=== PATIENT | male | born 1960 | race Caucasian/White ===

== ENCOUNTER 2025-07-20 16:04 | Inpatient (IN) ==
--- NOTE | 2025-07-20 16:28 | Emergency Department Note ---
Impression & Plan Liver masses, Ascites of liver, Electrolyte abnormality, Acute kidney injury, Lactic acidosis ED Provider Note NAME: JAIDA WILSON AGE: 64 SEX: M : 1960 ARRIVES VIA: Walk-In INFORMANT: Patient ED PROVIDER(S): Mike Harvey DO CHIEF COMPLAINT: Weakness and lightheadedness HPI: Patient is a 64-year-old male with a past medical history of COPD who presents to the ER for weakness which has been going on for the past month. He notes this has been gradually getting worse. Feels very weak and rundown. He sleeps for 3 hours and then is awake. He was referred in by his PCP as there were concerns for elevated liver functions anemia jaundice. He notes that over a month ago he had some dark stools but that has abated. Denies any chest pain or shortness of breath with exertion. No belly pain. No other exacerbating or remitting factors. No history of cancer. ADDITIONAL HISTORY OBTAINED: Per HPI Chronic Medical/Social Conditions Affecting Care: Per HPI PAST MEDICAL HISTORY:See Below PAST SURGICAL HISTORY:See Below FAMILY HISTORY:See Below SOCIAL HISTORY:See Below HOME MEDICATIONS:See Below ALLERGIES:See Below VITALS:See Below PHYSICAL EXAMINATION: GENERAL: Sitting up in bed, alert, chronically ill-appearing, cachectic, disheveled EYE EXAM: normal conjunctiva. PERRL and EOM's grossly intact. OROPHARYNX: no exudate, no erythema, lips, buccal mucosa, and tongue normal and mucous membranes are moist NECK: supple, no nuchal rigidity, no adenopathy, non-tender LUNGS: Clear to auscultation. Normal chest wall mechanics HEART: no murmurs, S1 normal and S2 normal ABDOMEN: abdomen soft, non-tender, normo-active bowel sounds, no masses, no rebound or guarding. BACK: Back is symmetrical on inspection and there is no deformity, no midline tenderness, no CVA tenderness. SKIN: no rashes and no bruising UPPER EXTREMITIES: upper extremities are grossly normal. LOWER EXTREMITIES: No pitting edema. NEURO EXAM: Normal sensorium, cranial nerves II-XII grossly intact, normal speech, no gross weakness of arms, no gross weakness of legs. MEDICAL DECISION MAKING: Patient is a 64-year-old male who presents to the ER for the above-stated complaint. IV was established blood work is obtained. Labs show no significant leukocytosis. Mild anemia at 9.1. Platelets are slightly low at 118. INR at 1.5. BMP with hyponatremia at 129. Potassium low at 3.2. Creatinine was elevated at 1.9. External records were reviewed from [facility] which shows creatinine of 0.9. He does clearly have some RHONDA. Blood pressures were in the 80s upon arrival. He was given IV fluids. Bilirubin was elevated. Mag slightly low. Transaminitis. Pro-Xiang at 1.1. CT abdomen pelvis showed liver masses and they favored cancer versus abscesses. Patient was covered with IV antibiotics including Flagyl and Rocephin initially. Chest x-ray was unremarkable. Case discussed with hospitalist for further evaluation management treatment. Consults/Care Managements Discussions: Per MDM Triage Nursing notes reviewed. Limited review of prior medical records performed Vital Signs: reviewed and remarkable for hypotensive and tachycardic Differential diagnosis: Sepsis, UTI, pneumonia, metabolic, electrolyte abnormalities, cardiac sources, intracerebral event, toxicologic, neurologic, as well as other pathologies. ER treatment provided: See below Diagnostics interpreted by me include EKG and cardiac monitoring as listed below: -Cardiac Monitoring: An order was placed for continuous cardiac monitoring. The monitor shows a rate of 110 with sinus rhythm. -ECG: [none] -Laboratory studies:Interpreted by me as stated above in MDM and shown below. Imaging studies: Xrays: As interpreted by me: portable AP upright 1 view the chest shows no focal infiltrate CTs show: CT abdomen pelvis as described above Procedures: none Critical Care: none Past Med/Surg History Problem List (Updated 07/20/25 @ 21:55 by Mike Harvey DO) Pruritus due to systemic disorder Lactic acidosis (Acute) Severe protein-calorie malnutrition Acute kidney injury (Acute) Electrolyte abnormality (Acute) Ascites of liver (Acute) Liver masses (Acute) Social History Smoking Status: Unknown if ever smoked Preferred Language: Uzbek Feels Safe at Home: Yes Allergies Allergies Allergy/AdvReac Type Severity Reaction Status Date / Time No Known Allergies Allergy Verified 07/20/25 19:37 Home Meds Home Medications Medication Instructions Recorded Confirmed No Known Home Medications 07/20/25 07/20/25 Results & Data (ED) Vital Signs Vital Signs - 24 hr 07/20/25 16:09 07/20/25 17:00 07/20/25 17:09 Temperature 36.9 C Temperature Source Temporal Artery Scan Pulse Rate 110 H 102 H Pulse Rate [Finger] 98 H Respiratory Rate 19 18 Blood Pressure 86/56 L Blood Pressure [Right Arm] 114/66 Blood Pressure Mean 66 Blood Pressure Mean [Right Arm] 82 Pulse Oximetry 99 99 Oxygen Delivery Method Room Air Room Air Sepsis Recent Fever Within 48 Hours No Sepsis New/Unexplained Change in Mental Status N/A Sepsis Action Taken by Nursing No Action Required 07/20/25 18:30 Temperature Temperature Source Pulse Rate Pulse Rate [Finger] 97 H Respiratory Rate 18 Blood Pressure Blood Pressure [Right Arm] 109/72 Blood Pressure Mean Blood Pressure Mean [Right Arm] 84 Pulse Oximetry 98 Oxygen Delivery Method Room Air Sepsis Recent Fever Within 48 Hours Sepsis New/Unexplained Change in Mental Status Sepsis Action Taken by Nursing Laboratory Data 07/20/25 16:25 07/20/25 16:25 Lab Results 07/20/25 07/20/25 Range/Units 16:25 16:32 WBC 9.23 (4.8-10.8) K/ul RBC 2.65 L (4.70-6.10) M/uL Hgb 9.1 L (14.0-18.0) g/dl POC Hgb 10.2 L (14.0-18.0) g/dl Hct 27.7 L (42.0-52.0) % POC Hct 30 L (42-52) % MCV 104.5 H (80.0-100.0) fL MCH 34.3 H (25.0-34.0) pg MCHC 32.9 (32.0-36.0) g/dL RDW Std Deviation 55.9 H (36.4-46.3) fL RDW Coeff of Colin 14.6 H (11.5-14.5) % Plt Count 118 L (130-400) K/uL MPV 11.4 (9.4-12.4) fL Immature Gran % (Auto) 0.7 % Neut % (Auto) 59.2 % Lymph % (Auto) 29.4 % [place] % (Auto) 10.3 % Eos % (Auto) 0.2 % Baso % (Auto) 0.2 % Neut # (Auto) 5.47 (1.40-6.50) K/uL Lymph # (Auto) 2.71 (1.20-3.40) K/uL [place] # (Auto) 0.95 H (0.11-0.59) K/uL Eos # (Auto) 0.02 (0.00-0.50) K/uL Baso # (Auto) 0.02 (0.00-0.20) K/uL Immature Gran # (Auto) 0.06 (0.01-0.20) K/uL Polychromasia 1+ PT 15.4 H (9.0-12.0) Seconds INR 1.5 H (0.9-1.1) POC Sodium 130 L (135-144) mmol/L Sodium 129 L (136-145) mmol/L POC Potassium 3.2 L (3.3-5.0) mmol/L Potassium 3.2 L (3.5-5.1) mmol/L POC Chloride 87 L (101-112) mmol/L Chloride 89 L (98-107) mmol/L Carbon Dioxide 33 H (21-32) mmol/L POC Total CO2 31 (24-31) mmol/L Anion Gap 7 (3-11) POC Anion Gap 16.0 (16-25) mmol/L POC BUN 37 H (7-18) mg/dl BUN 40 H (6-23) mg/dl Creatinine 1.97 H (0.6-1.4) mg/dl POC Creatinine 2.3 H (0.6-1.3) mg/dl Est Cr Clr Drug Dosing Not Reportable eGFR 37.25 BUN/Creatinine Ratio 20.3 H (10-20) Glucose 152 H (70-99(Fasting)) mg/dl POC Glucose (other) 148 H (70-99) mg/dl Lactate 3.8 H* (0.4-2.0) mmol/L Calcium 8.5 L (8.6-10.3) mg/dl POC Ioniz Calcium Dk 1.02 L (1.12-1.32) mmol/l Magnesium 1.3 L (1.7-2.4) mg/dl Total Bilirubin 2.2 H (0.2-1.0) mg/dl Direct Bilirubin 1.1 H (0-0.2) mg/dl AST 86 H (13-39) U/L ALT 63 H (7-52) U/L Alkaline Phosphatase 233 H (34-104) U/L Troponin I High Sens 16.7 (0-20) pg/ml Total Protein 6.4 (6.0-8.3) gm/dl Albumin 2.3 L (3.4-5.0) gm/dl Procalcitonin 1.18 H (0-0.5) ng/ml Administered Medications Discontinued Medications Diphenhydramine HCl (Diphenhydramine 50 Mg/Ml Vial) 25 mg IV NOW STA Stop: 07/20/25 18:53 Last Admin: 07/20/25 19:17 Dose: 25 mg Documented By: PROMISE Sodium Chloride (Nss) 1,000 mls @ 999 mls/hr IV .Q1H1M ONE Stop: 07/20/25 17:28 Last Infusion: 07/20/25 17:46 Dose: Infused Documented By: Admin: 07/20/25 16:39 Dose: 999 mls/hr Documented By: JAYSON Ceftriaxone Sodium (Rocephin) 2,000 mg in 50 mls @ 100 mls/hr IV NOW STA Stop: 07/20/25 16:57 Last Infusion: 07/20/25 17:46 Dose: Infused Documented By: Admin: 07/20/25 16:39 Dose: 100 mls/hr Documented By: JAYSON Metronidazole (Flagyl) 500 mg in 100 mls @ 100 mls/hr IV NOW STA; Protocol Stop: 07/20/25 19:27 Last Infusion: 07/20/25 20:21 Dose: Infused Documented By: Admin: 07/20/25 19:17 Dose: 100 mls/hr Documented By: HARISH Imaging Data Radiologist's Impression: Chest X-Ray 07/20/25 16:15 Clinical History: Sepsis Technique: A frontal view of the chest was obtained Findings: There are no confluent pulmonary infiltrates. The heart size is within normal limits. No pleural effusion or pneumothorax is seen. There is no definite pulmonary nodule. No fracture is noted. No foreign body is seen Impression: No active disease Electronically signed by Gabriel Vera 07-20-2025 5:00 PM Abdomen/Pelvis CT 07/20/25 17:08 EXAMINATION: CT of the abdomen and pelvis performed without contrast TECHNIQUE: Helical CT images from the lung bases through the symphysis pubis were obtained without contrast. Coronal and sagittal reformatted images were generated at a workstation for further assessment. Dose reduction techniques were achieved by using automatic exposure control and/or adjustment of mA and/or kV according to patient size and/or use of iterative reconstruction technique. COMPARISON: None HISTORY: Elevated LFTs FINDINGS: Lower chest: No consolidation. No pleural effusion or pneumothorax. Liver: Posterior right hepatic lobe lesion measuring 6.7 x 5.4 cm, is internally heterogeneous with scattered low-density areas. Anterior left hepatic lobe lesion measuring 3.3 x 1.8 cm is hyperattenuating. Gallbladder: No gallstones. No evidence of acute cholecystitis. Spleen: Normal size. Pancreas: No suspicious pancreatic lesions. The pancreatic duct is not dilated. Adrenal glands: No adrenal nodules. Kidneys: No hydronephrosis or obstructing renal stones. Bladder / Pelvic organs: Unremarkable. Bowel: No bowel obstruction. No abnormal bowel wall thickening. The appendix is unremarkable. There is a moderate esophageal hiatal hernia. Sigmoid diverticulosis without diverticulitis. Lymph nodes: No retroperitoneal, mesenteric, or pelvic lymphadenopathy. Peritoneum / Retroperitoneum: There is a large volume of ascites. Vessels: No infrarenal aortic aneurysm. Heavy aortoiliac calcification. Bones and soft tissues: No suspicious lesion in the bones. IMPRESSION: There is a large heterogeneous mass in the posterior right lobe of the liver, which is nonspecific, for benign and malignant etiologies, however the findings are concerning for neoplasm. An abscess is in the differential, however seems less likely. A higher attenuating nodular area in the anterior left lobe, may also represent a mass. Large volume ascites. Electronically signed by Ashwin Vivar 07-20-2025 6:05 PM Discharge Plan Visit Data Chief Complaint: Referred by Doctor Stated Complaint: EVAL FROM [facility] REFERRAL ED Provider: Mike Harvey Discharge Problem: Liver masses, Ascites of liver, Electrolyte abnormality, Acute kidney injury, Lactic acidosis Condition: Serious Discharge Instructions Interventions: ED Discharge Assessment Last Done: 07/20/25 20:37
[2025-07-20] MEDS: cefTRIAXone SODIUM 2,000 MG/50 ML BAG IV STA (16:39)
[2025-07-20] MEDS: SODIUM CHLORIDE 0.9% 1,000 ML IV ONE (16:39)
--- NOTE | 2025-07-20 17:00 | XRay Report ---
Clinical History: Sepsis Technique: A frontal view of the chest was obtained Findings: There are no confluent pulmonary infiltrates. The heart size is within normal limits. No pleural effusion or pneumothorax is seen. There is no definite pulmonary nodule. No fracture is noted. No foreign body is seen Impression: No active disease Electronically signed by Gabriel Vera 07-20-2025 5:00 PM
[2025-07-20 17:12] LABS: Alanine Aminotransferase 63 U/L (7-52); Albumin Level 2.3 gm/dl (3.4-5.0); Alkaline Phosphatase 233 U/L (34-104); Anion Gap 7 (3-11); Bilirubin,Total 2.2 mg/dl (0.2-1.0); Blood Urea Nitrogen 40 mg/dl (6-23); Calcium 8.5 mg/dl (8.6-10.3); Carbon Dioxide 33 mmol/L (21-32); Chloride 89 mmol/L (98-107); Glucose 152 mg/dl (70-99(Fasting)); Magnesium 1.3 mg/dl (1.7-2.4); Potassium 3.2 mmol/L (3.5-5.1); Sodium 129 mmol/L (136-145); Total Protein 6.4 gm/dl (6.0-8.3)
[2025-07-20 17:21] LABS: INR 1.5 (0.9-1.1); Prothrombin Time 15.4 Seconds (9.0-12.0)
[2025-07-20 17:37] LABS: Hematocrit (blood only) 27.7 % (42.0-52.0); Hemoglobin 9.1 g/dl (14.0-18.0); Mean Corpuscular Hemoglobin 34.3 pg (25.0-34.0); Mean Corpuscular Volume 104.5 fL (80.0-100.0); Platelet Count 118 K/uL (130-400); RDW Standard Deviation 55.9 fL (36.4-46.3); Red Blood Count 2.65 M/uL (4.70-6.10); White Blood Count 9.23 K/ul (4.8-10.8)
[2025-07-20 18:01] LABS: Immature Granulocytes # (auto) 0.06 K/uL (0.01-0.20); Immature Granulocytes % (auto) 0.7 %; Polychromasia 1+
--- NOTE | 2025-07-20 18:05 | CT Scan Report ---
EXAMINATION: CT of the abdomen and pelvis performed without contrast TECHNIQUE: Helical CT images from the lung bases through the symphysis pubis were obtained without contrast. Coronal and sagittal reformatted images were generated at a workstation for further assessment. Dose reduction techniques were achieved by using automatic exposure control and/or adjustment of mA and/or kV according to patient size and/or use of iterative reconstruction technique. COMPARISON: None HISTORY: Elevated LFTs FINDINGS: Lower chest: No consolidation. No pleural effusion or pneumothorax. Liver: Posterior right hepatic lobe lesion measuring 6.7 x 5.4 cm, is internally heterogeneous with scattered low-density areas. Anterior left hepatic lobe lesion measuring 3.3 x 1.8 cm is hyperattenuating. Gallbladder: No gallstones. No evidence of acute cholecystitis. Spleen: Normal size. Pancreas: No suspicious pancreatic lesions. The pancreatic duct is not dilated. Adrenal glands: No adrenal nodules. Kidneys: No hydronephrosis or obstructing renal stones. Bladder / Pelvic organs: Unremarkable. Bowel: No bowel obstruction. No abnormal bowel wall thickening. The appendix is unremarkable. There is a moderate esophageal hiatal hernia. Sigmoid diverticulosis without diverticulitis. Lymph nodes: No retroperitoneal, mesenteric, or pelvic lymphadenopathy. Peritoneum / Retroperitoneum: There is a large volume of ascites. Vessels: No infrarenal aortic aneurysm. Heavy aortoiliac calcification. Bones and soft tissues: No suspicious lesion in the bones. IMPRESSION: There is a large heterogeneous mass in the posterior right lobe of the liver, which is nonspecific, for benign and malignant etiologies, however the findings are concerning for neoplasm. An abscess is in the differential, however seems less likely. A higher attenuating nodular area in the anterior left lobe, may also represent a mass. Large volume ascites. Electronically signed by Ashwin Vivar 07-20-2025 6:05 PM
[2025-07-20] MEDS: diphenhydrAMINE 50 MG/ML VIAL IV STA (19:17)
[2025-07-20] MEDS: metroNIDAZOLE 500 MG/100 ML BAG IV STA (19:17)
--- NOTE | 2025-07-20 19:27 | History & Physical Report ---
Date of Service July 20, 2025 Assessment & Plan (1) Liver masses: (2) Ascites of liver: (3) Electrolyte abnormality: (4) Acute kidney injury: (5) Severe protein-calorie malnutrition: (6) Lactic acidosis: (7) Pruritus due to systemic disorder: Plan Patient 64-year-old gentleman presents with pruritus, weight loss and weakness. Evaluation shows liver masses and ascites highly concerning for liver cancer. Admit to [facility] Interventional radiology for liver biopsy and paracentesis Patient did have recent dental surgery, tooth extraction, patient's procalcitonin is elevated. Lower suspicion for infectious process but will cover with antibiotics, Zosyn, until blood cultures are resulted. Many cancers also cause an increased procalcitonin. Echocardiogram for cardiac murmur evaluation Replace electrolytes Hyponatremia most likely due to poor oral intake and volume depletion Suspect renal dysfunction due to poor oral intake, volume depletion, overall debilitated state. Continue to monitor electrolytes and kidney function Check alpha-fetoprotein level CT of the chest for further evaluation of any type of metastatic disease or primary Patient declined nicotine replacement Patient reports that his last alcoholic beverage was greater than 1 month ago, will low suspicion for any alcohol withdrawal symptoms Discussed advanced directives with patient request DNR/DNI History of Present Illness Chief Complaint: Abnormal labs and severe itching and weight loss Primary Care Provider: NO PCP Patient is a 64-year-old gentleman presents to the emergency room with above complaints. He was sent in by primary care provider due to abnormal labs. The patient has not seen a physician for at least 10 years. Went to see primary care provider a few days ago with complaints of weight loss and pruritus. Outpatient laboratory studies showed significant laboratory abnormalities including abnormal LFTs and anemia. Sent to the emergency room for further evaluation. In the emergency room laboratory studies confirm some anemia. Multiple electrolyte abnormalities, kidney dysfunction and abnormal LFTs. Imaging in the ED also was significant for a fairly large liver mass. Patient was referred to our service for further evaluation. Time my evaluation patient states he is comfortable but has this incessant pruritus. Pruritus has been ongoing for months. The patient did have teeth extraction a few weeks ago. He was on antibiotics for that. He did have some bleeding gums associated with the teeth extraction and may explain some of his anemia. He states that his gums are healed up no no significant pain at this time. He admits to some shortness of breath with exertion but no chest pain. His appetite has been poor for quite some time and now with his teeth extracted his oral intake has been significantly reduced. He does admit noticing weight loss even before he had his teeth extracted but since the teeth extraction has lost weight even more rapidly. He did mid to a history of heavy alcohol use in the past. Over the past year has cut that back significantly and has not had an alcoholic beverage drink for at least 1 month. He also smoked heavily in the past greater than a pack a day and recently over the past month has been only smoking a few cigarettes per day. He has noticed some constipation with his decreased appetite. He states he did have some black stools shortly after his tooth extraction. This would makes perfect sense since he was having significant bl eeding gums and was swallowing blood from the bleeding gums. He had denies any problems passing his urine. No swollen or tender joints. No swelling in his hands legs arms or feet. Patient denies any known medical problems, takes no prescription medications Family history significant for father with coronary disease, mother of old age. There is no cancer that he is aware of in the family. Allergies Allergy/AdvReac Type Severity Reaction Status Date / Time No Known Allergies Allergy Unverified 07/20/25 19:20 Home Medications Medication Instructions Recorded Confirmed Type No Known Home Medications 07/20/25 07/20/25 History Past Med/Surg History Problem List (Updated 07/20/25 @ 19:24 by Efra Clay DO) Pruritus due to systemic disorder Lactic acidosis Severe protein-calorie malnutrition Acute kidney injury Electrolyte abnormality Ascites of liver Liver masses Social History Smoking Status: Unknown if ever smoked Preferred Language: Irish Feels Safe at Home: Yes Review of Systems Review of Systems: Pertinent positive and negative review of systems as mentioned in the HPI Physical Exam Physical Exam: Constitutional: Alert, nontoxic, frail, cachectic HEENT: Mucous membranes moist. Adentulous Neck: Soft, no adenopathy Lungs: Decreased breath sounds, prolonged expiratory phase no wheezes CV: S1-S2, regular, systolic murmur Abdomen: Soft, nontender, nondistended, no no guarding, no rigidity, lobular liver Extremities: No significant edema Musculoskeletal: No significant joint tenderness Neuro: No focal deficits, generally weak Psych: Cooperative, normal mood Results & Data Results & Data Vital Signs (Past 12 Hours) Vital Signs Temp Pulse Pulse Resp BP BP Pulse Ox 07/20/25 18:30 97 H 18 109/72 98 07/20/25 17:09 102 H 07/20/25 17:00 98 H 18 114/66 99 07/20/25 16:09 36.9 C 110 H 19 86/56 L 99 O2 Del Method 07/20/25 18:30 Room Air 07/20/25 17:09 07/20/25 17:00 Room Air 07/20/25 16:09 Room Air Diagnostic Findings Reviewed imaging, laboratory and diagnostic studies. Pertinent findings as below. WBCs 9.2 Hemoglobin 9.1 Platelets of 118 INR 1.5 Sodium 129 Potassium 3.2 Chloride of 89 Carbon dioxide 33 BUN 40 Creatinine 1.97 Glucose 152 Lactate 3.8 Calcium 8.5 Magnesium 1.3 LFTs reviewed and all significantly elevated Procalcitonin 1.18 CT of the abdomen report reviewed, significant for6.7 x 5.4 cm right hepatic lobe mass is also a lesion in left hepatic lobe measuring 3.3 x 1.8 cm, no bowel obstruction or thickening, no significant lymphadenopathy, there is also a fair amount of ascites Chest x-ray no active disease Code Status & VTE Plan VTE Prophylaxis Plan VTE Prophylaxis will be ordered: Yes
--- NOTE | 2025-07-20 20:46 | CT Scan Report ---
Exam(s): CT CHEST Without Contrast EXAM: CT Chest Without Intravenous Contrast CLINICAL HISTORY: Reason for exam: copd, liver mass, met dis. TECHNIQUE: Axial computed tomography images of the chest without intravenous contrast. CTDI is 6 mGy and DLP is 221.88 mGy-cm. Automated exposure control was utilized for the study. A dose lowering technique was utilized adhering to the principles of ALARA. COMPARISON: Chest x-ray 07/20/2025 FINDINGS: Lungs: Scarring in the right upper lobe. Subsegmental atelectasis in the left lower lobe. No consolidation. No suspicious nodule. Calcified granuloma at the left apex measuring 3 mm. Pleural space: No pleural effusion or pneumothorax. Heart: Severe coronary artery calcifications. Heart size is normal. Mediastinum: Moderate hiatal hernia. Ascites within the hernia sac and upper abdomen. Bones/joints: Superior endplate compression fracture at T10 which is age indeterminate. Potentially acute. No posterior cortical retropulsion. Subacute to chronic appearing left anterior second rib fracture. No acute appearing fracture. Soft tissues: Unremarkable. Vasculature: Advanced aortic valvular calcifications. Lymph nodes: Unremarkable. Liver: Multiple lesions in the liver largest in the right hepatic lobe measuring 4.9 x 3.6 cm. IMPRESSION: 1. No evidence of metastatic disease in the chest. 2. Superior endplate compression fracture at T10 which is age indeterminate. Potentially acute. No posterior cortical retropulsion. 3. Multiple lesions in the liver largest in the right hepatic lobe measuring 4.9 x 3.6 cm. 4. Moderate hiatal hernia. Ascites within the hernia sac and upper abdomen. 5. Severe coronary artery and aortic valvular calcifications. Electronically signed by: Alec Nina MD 07/20/25 20:46 PM
[2025-07-20] MEDS ORDERED: ACETAMINOPHEN 325 MG TAB PO PRN (21:25)
[2025-07-20] MEDS ORDERED: ALUMINUM/MAGNESIUM SUSP 30 ML UDC PO PRN (21:25)
[2025-07-20] MEDS: NSS + 20MEQ KCL 20 MEQ/1,000 ML BAG IV SCH (22:09)
[2025-07-20] MEDS: PIPERACILLIN/TAZOBACTAM 4.5 GM/100 ML BAG IV STA (22:09)
[2025-07-20] MEDS: MAGNESIUM SULFATE / D5W 1 GM/100 ML BAG IV SCH (22:09)
[2025-07-20] MEDS: POTASSIUM CHLORIDE CRTAB 20 MEQ TABCR PO STA (22:10)
[2025-07-20] MEDS: Patient's HEIGHT &/or WEIGHT Needed STA ×2 (23:08)
[2025-07-21] MEDS: LORATADINE 10 MG TAB PO ONE (00:30)
[2025-07-21] MEDS: MELATONIN 3 MG TAB PO PRN (00:30)
[2025-07-21 00:57] LABS: Appearance Urine Clear (Clear); Bacteria Urine Automated None Seen (None Seen); Epithelial Cell Urine Auto 0-2 /hpf (0-2); Glucose Urine UA Negative (Negative); RBC Urine Automated 0-2 /hpf (0-2); WBC Urine Automated 0-5 /hpf (0-5)
[2025-07-21] MEDS: PIPERACILLIN/TAZOBACTAM 4.5 GM/100 ML BAG IV SCH (01:59)
--- NOTE | 2025-07-21 05:41 | Communication Note ---
Date of Service: July 21, 2025 RN inquiring about diet for possible liver biopsy procedure today. N.p.o. for now
[2025-07-21] MEDS: POLYETHYLENE (MIRALAX) 17 GM PACK PO SCH (08:05)
[2025-07-21 08:31] LABS: Alanine Aminotransferase 45.0 U/L (7-52); Albumin Level 1.8 gm/dl (3.4-5.0); Alkaline Phosphatase 177.0 U/L (34-104); Anion Gap 5.0 (3-11); Bilirubin,Total 1.8 mg/dl (0.2-1.0); Blood Urea Nitrogen 33.0 mg/dl (6-23); Calcium 7.8 mg/dl (8.6-10.3); Carbon Dioxide 31.0 mmol/L (21-32); Chloride 96.0 mmol/L (98-107); Creatinine Clr Calc Pharmacy 26.6 ml/min; Glucose 89.0 mg/dl (70-99(Fasting)); Magnesium 2.7 mg/dl (1.7-2.4); Potassium 3.8 mmol/L (3.5-5.1); Sodium 132.0 mmol/L (136-145); Total Protein 5.2 gm/dl (6.0-8.3)
[2025-07-21 08:44] LABS: Hematocrit (blood only) 24.3 % (42.0-52.0); Hemoglobin 7.9 g/dl (14.0-18.0); Mean Corpuscular Hemoglobin 33.9 pg (25.0-34.0); Mean Corpuscular Volume 104.3 fL (80.0-100.0); Platelet Count 72 K/uL (130-400); RDW Standard Deviation 54.9 fL (36.4-46.3); Red Blood Count 2.33 M/uL (4.70-6.10); White Blood Count 4.87 K/ul (4.8-10.8)
--- NOTE | 2025-07-21 14:28 | Ultrasound Report ---
ULTRASOUND-GUIDED PARACENTESIS CLINICAL HISTORY: Ascites PROCEDURE: Procedure and risks were explained. Informed consent was obtained. A final timeout was com pleted. A pocket of ascites was identified in the left lower quadrant. The left lower quadrant was pr epped and draped in sterile fashion. 1% lidocaine was utilized for skin anesthesia. Utilizing ultrasound guidance, a 5 [place] safety centesis catheter was advanced into the pocket of as cites. Ultrasound image was obtained. A total of 3.1 L of yellow ascites fluid was removed, with 1 L sent to lab for analysis. The catheter was removed and Band-Aid applied. The patient tolerated the pr ocedure well. Vital signs will be monitored postprocedure. IMPRESSION: Ultrasound-guided paracentesis as above. Performed, dictated, and signed by Rizwan Arreguin PA-C; to be co-signed by Dr. Fitz Menjivar. Electronically signed by: Fitz Menjivar M.D. 07/21/2025 3:40 PM
[2025-07-21 15:48] LABS: Albumin Peritoneal Fluid < 1.5 gm/dl; Lipase Peritoneal Fluid 36 U/L
[2025-07-21 16:03] LABS: Appearance Peritoneal Fluid Clear; Color Peritoneal Fluid Pale Yellow; RBC Peritoneal Fluid Auto < 2000 /uL; WBC Peritoneal Fluid Auto 72 /ul (0-300)
--- NOTE | 2025-07-21 16:08 | Hospitalist Progress Note ---
Date of Service July 21, 2025 Assessment & Plan (1) Liver masses: (2) Ascites of liver: (3) Electrolyte abnormality: (4) Acute kidney injury: (5) Severe protein-calorie malnutrition: (6) Lactic acidosis: (7) Pruritus due to systemic disorder: Plan Patient 64-year-old gentleman presents with pruritus, weight loss and weakness. Evaluation shows liver masses and ascites highly concerning for liver cancer. Admit to [facility] Interventional radiology for liver biopsy and paracentesis Patient did have recent dental surgery, tooth extraction, patient's procalcitonin is elevated. Lower suspicion for infectious process but will cover with antibiotics, Zosyn, until blood cultures are resulted. Many cancers also cause an increased procalcitonin. Echocardiogram for cardiac murmur evaluation Replace electrolytes Hyponatremia most likely due to poor oral intake and volume depletion Suspect renal dysfunction due to poor oral intake, volume depletion, overall debilitated state. Continue to monitor electrolytes and kidney function Check alpha-fetoprotein level CT of the chest for further evaluation of any type of metastatic disease or primary Patient declined nicotine replacement Patient reports that his last alcoholic beverage was greater than 1 month ago, will low suspicion for any alcohol withdrawal symptoms Discussed advanced directives with patient request DNR/DNI 07/21 discussed with IR Deepak Arreguin will start with IR paracentesis with cytology studies hold off on Liver Biopsy for now Hyponatremia improving Crea improved from 1.8 to 1.9 continue IV fluids ff up cultures on empiric Zosyn echo: mild to moderate mitral regurgitation K and Mg improving Acute 10 Fracture: no back pain Ashish Soto MD Admission and Anticipated Discharge Date Admission Date: July 20, 2025 Subjective seen resting in bed, comfortable states he is very tired otherwise feels ok denies abdominal pain, nausea no chest pain, dyspnea, palpitations, dizziness no fever/chills no other symptoms Review of Systems Review of Systems: all noted and negative except for above Physical Exam Physical Exam: General- oriented x 3, not in distress, speaks in sentences with no effort or accessory muscle use Eyes- anicteric Neck- no JVD Lungs- clear breath sounds bilaterally, no rales/wheezes Heart- normal rate, regular rhythm; no murmurs Abdomen- normal bowel sounds, nondistended, soft, nontender Extremities- no pretibial edema, no calf tenderness Neuro- alert, oriented x 3; no gross focal neurologic deficits Skin- warm & dry Results & Data Results & Data Vital Signs (Past 12 Hours) Vital Signs Temp Pulse Resp BP Pulse Ox O2 Del Method 07/21/25 14:50 36.3 C L 83 18 95/62 L 96 Room Air 07/21/25 14:27 79 85/55 L 07/21/25 14:03 78 16 93/60 L 93 Room Air 07/21/25 13:32 36.4 C L 86 18 98/61 L 95 Room Air 07/21/25 11:28 Room Air 07/21/25 07:24 36.4 C L 82 18 94/58 L 94 Room Air all noted and reviewed including below
[2025-07-22 08:15] LABS: Alanine Aminotransferase 44.0 U/L (7-52); Albumin Level 1.7 gm/dl (3.4-5.0); Alkaline Phosphatase 184.0 U/L (34-104); Anion Gap 7.0 (3-11); Bilirubin,Total 1.9 mg/dl (0.2-1.0); Blood Urea Nitrogen 29.0 mg/dl (6-23); Calcium 7.9 mg/dl (8.6-10.3); Carbon Dioxide 27.0 mmol/L (21-32); Chloride 99.0 mmol/L (98-107); Creatinine Clr Calc Pharmacy 24.8 ml/min; Glucose 95.0 mg/dl (70-99(Fasting)); Potassium 4.3 mmol/L (3.5-5.1); Sodium 133.0 mmol/L (136-145); Total Protein 5.3 gm/dl (6.0-8.3)
[2025-07-22 08:37] LABS: Hematocrit (blood only) 26.2 % (42.0-52.0); Hemoglobin 8.6 g/dl (14.0-18.0); Immature Granulocytes # (auto) 0.03 K/uL (0.01-0.20); Immature Granulocytes % (auto) 0.5 %; Mean Corpuscular Hemoglobin 33.9 pg (25.0-34.0); Mean Corpuscular Volume 103.1 fL (80.0-100.0); Platelet Count 69 K/uL (130-400); RDW Standard Deviation 54.4 fL (36.4-46.3); Red Blood Count 2.54 M/uL (4.70-6.10); White Blood Count 5.93 K/ul (4.8-10.8)
[2025-07-22] MEDS ORDERED: ENOXAPARIN INJ 30 MG/0.3 ML SYR SQ SCH (09:00)
[2025-07-22 10:58] LABS: Iron 108.0 mcg/dl (35-175)
[2025-07-22 11:46] LABS: Vitamin B12 821.0 pg/ml (180-914)
[2025-07-22 11:47] LABS: Folate (Folic Acid),Ser orPlas 20.58 ng/ml (>5.38)
[2025-07-22 11:47] LABS: Lymphocytes, Fluid 65 %; Mono,Macrophage,Mesothelial 33 %; Neutrophils, Fluid 2 %
--- NOTE | 2025-07-22 14:36 | Hospitalist Progress Note ---
Date of Service July 22, 2025 Assessment & Plan (1) Liver masses: (2) Ascites of liver: (3) Electrolyte abnormality: (4) Acute kidney injury: (5) Severe protein-calorie malnutrition: (6) Lactic acidosis: (7) Pruritus due to systemic disorder: Plan Patient 64-year-old gentleman presents with pruritus, weight loss and weakness. Evaluation shows liver masses and ascites highly concerning for liver cancer. Admit to [facility] Interventional radiology for liver biopsy and paracentesis Patient did have recent dental surgery, tooth extraction, patient's procalcitonin is elevated. Lower suspicion for infectious process but will cover with antibiotics, Zosyn, until blood cultures are resulted. Many cancers also cause an increased procalcitonin. Echocardiogram for cardiac murmur evaluation Replace electrolytes Hyponatremia most likely due to poor oral intake and volume depletion Suspect renal dysfunction due to poor oral intake, volume depletion, overall debilitated state. Continue to monitor electrolytes and kidney function Check alpha-fetoprotein level CT of the chest for further evaluation of any type of metastatic disease or primary Patient declined nicotine replacement Patient reports that his last alcoholic beverage was greater than 1 month ago, will low suspicion for any alcohol withdrawal symptoms Discussed advanced directives with patient request DNR/DNI 07/21 discussed with IR Deepak Arreguin will start with IR paracentesis with cytology studies hold off on Liver Biopsy for now Hyponatremia improving Crea improved from 1.8 to 1.9 continue IV fluids ff up cultures on empiric Zosyn echo: mild to moderate mitral regurgitation K and Mg improving Acute 10 Fracture: no back pain 07/22 stable overall ascites fluid: no WBC ascites fluid pathology: pending Na 133 Crea stable at 1.9 d/c IV lfuids cultures negative so far de escalate to augmentin pt/ot ordered anticipate d/c tomorrow Ashish Soto MD Admission and Anticipated Discharge Date Admission Date: July 20, 2025 Subjective seen resting in bed ,comfortable states he feels ok overall weakness improving appetite is fair no abdominal pain no nausea/vomiting ,fever/chills no melena/hematochezia no other symptoms Review of Systems Review of Systems: all noted and negative except for above Physical Exam Physical Exam: General- oriented x 3, not in distress, speaks in sentences with no effort or accessory muscle use Eyes- anicteric Neck- no JVD Lungs- clear breath sounds bilaterally, no rales/wheezes Heart- normal rate, regular rhythm; no murmurs Abdomen- normal bowel sounds, nondistended, soft, nontender Extremities- no pretibial edema, no calf tenderness Neuro- alert, oriented x 3; no gross focal neurologic deficits Skin- warm & dry Results & Data Results & Data Vital Signs (Past 12 Hours) Vital Signs Temp Pulse Resp BP Pulse Ox O2 Del Method 07/22/25 08:14 36.7 C 94 H 18 90/57 L 96 Room Air all noted and reviewed including below
--- NOTE | 2025-07-22 16:00 | Electrocardiogram Report ---
Test Reason : Blood Pressure : */* mmHG Vent. Rate : 72 BPM Atrial Rate : 72 BPM P-R Int : 138 ms QRS Dur : 70 ms QT Int : 424 ms P-R-T Axes : 81 75 76 degrees QTcB Int : 464 ms Normal sinus rhythm Normal ECG No previous ECGs available Confirmed by Slava Silver ([id number]) on 07/22/2025 4:00:12 PM Referred By: REFERRED SELF Confirmed By: Slava Silver
[2025-07-22] MEDS: ADVANCED PROBIOTIC 625 MG CAPSULE PO SCH (17:22)
[2025-07-22] MEDS: AMOXICILLIN/CLAVULANATE 500 MG TAB PO SCH (17:27)
--- NOTE | 2025-07-22 21:24 | Communication Note ---
Date of Service: July 22, 2025 Overnight issues 2214 Patient with dark red/brown liquid emesis as per RN. Patient attributes emesis from swallowed blood post dental extraction prior to confinement. No abdominal pain. CBC now 07/23, 5 AM Patient with coffee-ground emesis as per RN. No abdominal pain. No melena as per patient. SBP 80s, heart rate 120s AP Hypotension UGIB in a cirrhotic patient PCU transfer IV PPI IV ceftriaxone for SBP prophylaxis given cirrhosis history GI consult re: UGIB N.p.o. anticipation of endoscopy
[2025-07-22] MEDS: CALCIUM CARBONATE 500 MG CHEWABLE TAB PO PRN (21:48)
[2025-07-22 22:05] LABS: Hematocrit (blood only) 26.4 % (42.0-52.0); Hemoglobin 8.7 g/dl (14.0-18.0); Immature Granulocytes # (auto) 0.05 K/uL (0.01-0.20); Immature Granulocytes % (auto) 0.5 %; Mean Corpuscular Hemoglobin 33.9 pg (25.0-34.0); Mean Corpuscular Volume 102.7 fL (80.0-100.0); Platelet Count 96 K/uL (130-400); RDW Standard Deviation 54.0 fL (36.4-46.3); Red Blood Count 2.57 M/uL (4.70-6.10); White Blood Count 9.40 K/ul (4.8-10.8)
[2025-07-22] MEDS: ALBUMIN 25% 12.5 GM/50 ML VIAL IV ONE ×2 (22:14→23:15)
[2025-07-22 22:48] LABS: Magnesium 2.1 mg/dl (1.7-2.4)
[2025-07-22 22:50] LABS: INR 1.6 (0.9-1.1); Prothrombin Time 16.0 Seconds (9.0-12.0)
[2025-07-23] MEDS: ALBUMIN 25% 25 GM/100 ML VIAL IV ONE (05:50)
[2025-07-23] MEDS: PHYTONADIONE 5 MG in DEXTROSE 5% 50 ML IV ONE (06:14)
[2025-07-23] MEDS: cefTRIAXone SODIUM 1,000 MG/50 ML BAG IV SCH (06:14)
[2025-07-23] MEDS: SODIUM CHLORIDE 0.9% 1,000 ML IV SCH (07:38)
[2025-07-23 08:01] LABS: Hematocrit (blood only) 18.8 % (42.0-52.0); Hemoglobin 6.0 g/dl (14.0-18.0); Mean Corpuscular Hemoglobin 33.9 pg (25.0-34.0); Mean Corpuscular Volume 106.2 fL (80.0-100.0); Platelet Count 78 K/uL (130-400); RDW Standard Deviation 55.5 fL (36.4-46.3); Red Blood Count 1.77 M/uL (4.70-6.10); White Blood Count 8.24 K/ul (4.8-10.8)
[2025-07-23] MEDS ORDERED: SODIUM CHLORIDE 0.9% 100 ML IV PRN (08:03)
[2025-07-23 08:07] LABS: Alanine Aminotransferase 33.0 U/L (7-52); Albumin Globulin Ratio 0.9 (0.9-2); Albumin Level 2.5 gm/dl (3.4-5.0); Alkaline Phosphatase 125.0 U/L (34-104); Anion Gap 12.0 (3-11); Bilirubin,Total 1.8 mg/dl (0.2-1.0); Blood Urea Nitrogen 41.0 mg/dl (6-23); Calcium 8.4 mg/dl (8.6-10.3); Carbon Dioxide 25.0 mmol/L (21-32); Chloride 99.0 mmol/L (98-107); Creatinine Clr Calc Pharmacy 19.8 ml/min; Globulin 2.9 gm/dl (2.5-4.0); Glucose 109.0 mg/dl (70-99(Fasting)); INR 2.0 (0.9-1.1); Potassium 3.8 mmol/L (3.5-5.1); Prothrombin Time 20.0 Seconds (9.0-12.0); Sodium 136.0 mmol/L (136-145); Total Protein 5.4 gm/dl (6.0-8.3)
[2025-07-23] MEDS ORDERED: STAT IV/IM STA (08:13)
[2025-07-23] MEDS: SODIUM CHLORIDE 0.9% 500 ML IV ONE (08:23)
[2025-07-23 08:27] LABS: Immature Granulocytes # (auto) 0.04 K/uL (0.01-0.20); Immature Granulocytes % (auto) 0.5 %; Macrocytosis Present; Polychromasia 1+
[2025-07-23] MEDS: OCTREOTIDE ACETATE 50 MCG in SYRINGE 9.5 ML IV STA (08:40)
[2025-07-23] MEDS: METOCLOPRAMIDE HCL INJ 5 MG/ML 2 ML VIAL IV STA (08:41)
[2025-07-23] MEDS: diphenhydrAMINE 50 MG/ML VIAL IV STA (08:44)
[2025-07-23] MEDS: OCTREOTIDE ACETATE 500 MCG in SODIUM CHLORIDE 0.9% 100 ML IV SCH (08:49)
[2025-07-23] MEDS: ACETAMINOPHEN 500 MG TAB PO STA (09:03)
[2025-07-23] MEDS ORDERED: SUCCINYLCHOLINE CHLORIDE 20 MG/ML 10 ML VIAL IV ONE (14:26)
[2025-07-23] MEDS ORDERED: ONDANSETRON INJ 2 MG/ML 2 ML VIAL ONE (14:27)
[2025-07-23] MEDS ORDERED: LIDOCAINE 2% 2 ML VIAL/AMP(20MG/ML) INFIL ONE (14:27)
[2025-07-23] MEDS ORDERED: PROPOFOL IV EMULSION 10 MG/ML 20 ML VIAL IV ONE (14:27)
[2025-07-23] MEDS ORDERED: DEXAMETHASONE SOD INJ 4 MG/ML VIAL ONE (14:27)
[2025-07-23] MEDS ORDERED: MIDAZOLAM HCL 1 MG/ML 2ML VIAL ONE (14:28)
[2025-07-23] MEDS ORDERED: HYDROmorphone INJ 1 MG/ML SYRINGE IV PRN (14:37)
[2025-07-23] MEDS ORDERED: ONDANSETRON INJ 2 MG/ML 2 ML VIAL IV PRN (14:37)
[2025-07-23] MEDS ORDERED: ATROPINE SULFATE 0.1 MG/ML 10ML SYR IV PRN (14:37)
--- NOTE | 2025-07-23 14:37 | Anesthesiology Consultation ---
Date of Service July 23, 2025 Assessment & Plan ASA [id number] Proposed Anesthesia Anesthesia Type: General Risk / Benefits Reviewed With: PT / POA / Parent / Guardian, Accepts Plan and Informed Consent Obtained Additional Comments: pt s/p two units of blood. History Surgery Operation Date: 07/23/25 14:30 Proposed Procedures p Esophagogastroduodenoscopy - Collins Arredondo MD Height/Weight Height: 5 ft 8 in Weight: 46.8 kg Allergies Allergy/AdvReac Type Severity Reaction Status Date / Time No Known Allergies Allergy Verified 07/20/25 19:37 Medications Home Medications Medication Instructions Recorded Confirmed Last Taken No Known Home Medications 07/20/25 07/20/25 Unknown Active Medications Generic Name Dose Route Start Last Admin Trade Name Freq PRN Reason Stop Dose Admin Amoxicillin/Clavulanate Potassium 1 tab 07/22/25 17:00 07/22/25 17:27 Amoxicillin/Clavulanate 500 Mg Tab PO 08/01/25 16:59 1 tab BIDM JESSICA Administration Protocol Calcium Carbonate 500 mg 07/22/25 10:07 07/22/25 21:48 Calcium Carbonate 500 Mg Chewable Tab PO 08/21/25 10:06 500 mg Q6H PRN Administration Indigestion Ceftriaxone Sodium 1,000 mg in 50 mls @ 100 mls/hr 07/23/25 06:00 07/23/25 06:49 Rocephin IV 08/02/25 05:59 Infused Q24H JESSICA Infusion Sodium Chloride 1,000 mls @ 125 mls/hr 07/23/25 07:45 07/23/25 07:38 Nss IV 07/26/25 07:44 125 mls/hr .Q8H JESSICA Administration Octreotide Acetate 500 mcg/ 100.5 mls @ 10.05 mls/hr 07/23/25 08:15 07/23/25 08:49 Sodium Chloride IV 08/22/25 08:14 50 mcg/hr .Q10H JESSICA 10.1 mls/hr Administration 50 MCG/HR Lactobacillus Acidophilus 1,250 mg 07/22/25 14:40 07/23/25 09:03 Advanced Probiotic 625 Mg Capsule PO 08/21/25 14:39 Not Given DAILY JESSICA Melatonin 3 mg 07/21/25 00:12 07/22/25 21:48 Melatonin 3 Mg Tab PO 08/20/25 00:11 3 mg HS PRN Administration Sleep Polyethylene Glycol 17 gm 07/21/25 09:00 07/23/25 09:03 Polyethylene (Miralax) 17 Gm Pack PO 08/20/25 08:59 Not Given DAILY JESSICA NPO Date Last Intake of Fluids: 07/22/25 Date Last Intake of Solids: 07/22/25 Exercise / Class Metabolic Activity II 4-5 Yardwork/Stairs/Walk up hill Past Anesthesia History No Hx of Anesthesia Complications and No Family Hx of Anesthesia Complications History of PONV No Hx of PONV and No Hx of Motion Sickness Social History Smoking Status: Current every day smoker Do You Dip or Chew Tobacco: No Hx Alcohol Use: Yes Alcohol type: hard liquor alcohol intake frequency: a few times a week Hx Substance Use: Yes substance use type: marijuana Last Used Substance: Days (ago) Review of Systems denies fever/cough/ colds/ chest pain/ SOB/ EDGAR denies EDGAR Physical Exam Vital Signs Last Vital Signs Temp 36.9 C 07/23/25 13:46 Pulse 97 H 07/23/25 13:46 Resp 14 07/23/25 13:46 BP 101/63 07/23/25 13:46 Pulse Ox 97 07/23/25 13:46 O2 Del Method Room Air 07/23/25 09:38 O2 Flow Rate 53 07/22/25 21:44 ENMT Mouth: + edentulous; no TMJ abnormality and no dentition abnormality Thyromental Distance: > or= 3.5 Finger Breadths Mallampati Class: II Neck neck extension not limited Respiratory normal respiratory effort; no respiratory distress Auscultation: lungs clear to auscultation bilaterally Cardiovascular Rate/Rhythm: regular rate and regular rhythm Neurologic moves all extremities Psychiatric Orientation: alert and oriented x 3 Testing Laboratory Results 07/23/25 07:36 PT 20.0 Seconds (9.0-12.0) H 07/23/25 07:36 INR 2.0 (0.9-1.1) H 07/23/25 07:36 Urine Color Dark Yellow 07/21/25 00:37 Urine Appearance Clear (Clear) 07/21/25 00:37 Urine pH 5.5 (4.5-7.5) 07/21/25 00:37 Ur Specific [place] 1.023 (1.000-1.030) 07/21/25 00:37 Urine Protein Negative (Negative) 07/21/25 00:37 Urine Glucose (UA) Negative (Negative) 07/21/25 00:37 Urine Ketones Trace (Negative) H 07/21/25 00:37 Urine Nitrite Negative (Negative) 07/21/25 00:37 Ur Leukocyte Esterase Trace (Negative) H 07/21/25 00:37 Urine WBC (Auto) 0-5 /hpf (0-5) 07/21/25 00:37 Urine RBC (Auto) 0-2 /hpf (0-2) 07/21/25 00:37 U Hyaline Cast (Auto) 6-10 /lpf (0-2) H 07/21/25 00:37 U Epithel Cells (Auto) 0-2 /hpf (0-2) 07/21/25 00:37 Urine Bacteria (Auto) None Seen (None Seen) 07/21/25 00:37 Blood Type O Positive 07/22/25 21:30 Antibody Screen NEGATIVE 07/22/25 21:30 07/21/25 Unknown Gram Stain - Final Peritoneal Fluid Aerobic and Anaerobic Culture - Preliminary No growth to date. 07/20/25 16:49 Aerobic Blood Culture - Preliminary Blood No growth in Aerobic bottle after 48 hours. Anaerobic Blood Culture - Preliminary No growth in Anaerobic bottle after 48 hours. 07/20/25 16:25 Aerobic Blood Culture - Preliminary Blood No growth in Aerobic bottle after 48 hours. Anaerobic Blood Culture - Preliminary No growth in Anaerobic bottle after 48 hours.
--- NOTE | 2025-07-23 14:43 | Gastrointestinal Consultation ---
Date of Consultation July 23, 2025 Assessment & Plan (1) Liver masses: Await liver biopsies by radiology (2) Ascites of liver: suggest US guided paracentesis for ascites labs and cytology (3) Acute blood loss anemia: Acute blood loss anemia, coffee ground emesis, agree with PPI gtt, octreotide, iv ceftriaxone, after medical optimization to proceed with urgent EGD Plan Patient 64-year-old gentleman presents with pruritus, weight loss and weakness. Evaluation shows liver masses and ascites highly concerning for liver cancer. Admit to [facility] unit Interventional radiology for liver biopsy and paracentesis Now with acute blood loss anemia Discussed with team; proceed w EGD Collins Arredondo MD History of Present Illness Reason for Consultation: COFFEE GROUND EMESIS , ACUTE BLOOD LOSS ANEMIA Attending Physician: Ashish Soto MD History of Present Illness 64 Y od male is admitted in the hospital for weakness and a liver mass . Developed coffee ground emesis and acute blood loss anemia with about 2-3 g blood loss, underlying cirrhosis likely from ETOH. HD stable at the moment, s/p 2 units PRBCs. Allergies Allergy/AdvReac Type Severity Reaction Status Date / Time No Known Allergies Allergy Verified 07/20/25 19:37 Home Medications Medication Instructions Recorded Confirmed Type No Known Home Medications 07/20/25 07/20/25 History Patient History Social History Smoking Status: Current every day smoker Tobacco Type: Cigarettes Do You Dip or Chew Tobacco: No; Hx Alcohol Use: Yes Alcohol type: hard liquor Hx Substance Use: Yes Last Used Substance: Days (ago) Preferred Language: Greenlandic Communication Ability: Effective Store Protection Specialist Required: No Beliefs That Will Affect Care: None Current Living Situation: Spouse Feels Safe at Home: Yes Assistive Devices: None Review of Systems Review of Systems: Constitutional: No Weight Change, No Fever, No Chills, No Night Sweats, No Fatigue, No Malaise ENT/Mouth: No Hearing Changes, No Ear Pain, No Nasal Congestion, No Sinus Pain, No Hoarseness, No sore throat, No Rhinorrhea, No Swallowing Difficulty Eyes: No Eye Pain, No Swelling, No Redness, No Foreign Body, No Discharge, No Vision Changes Cardiovascular: No Chest Pain, No SOB, No PND, No Dyspnea on Exertion, No Orthopnea, No Claudication, No Edema, No Palpitations Respiratory: No Cough, No Sputum, No Wheezing, No Smoke Exposure, No Dyspnea Gastrointestinal: No Nausea, No Vomiting, No Diarrhea, No Constipation, No Pain, No Heartburn, No Anorexia, No Dysphagia, No Hematochezia, No Melena, No Flatulence, No Jaundice Genitourinary: No Dysmenorrhea, No DUB, No Dyspareunia, No Dysuria, No Urinary Frequency, No Hematuria, No Urinary Incontinence, No Urgency, No Flank Pain, No Urinary Flow Changes, No Hesitancy Musculoskeletal: No Arthralgias, No Myalgias, No Joint Swelling, No Joint Stiffness, No Back Pain, No Neck Pain, No Injury History Skin: No Skin Lesions, No Pruritis, No Hair Changes, No Breast/Skin Changes, No Nipple Discharge Neuro: No Weakness, No Numbness, No Paresthesias, No Loss of Consciousness, No Syncope, No Dizziness, No Headache, No Coordination Changes, No Recent Falls Psych: No Anxiety/Panic, No Depression, No Insomnia, No Personality Changes, No Delusions, No Rumination, No SI/HI/AH/VH, No Social Issues, No Memory Changes, No Violence/Abuse Hx., No Eating Concerns Heme/Lymph: No Bruising, No Bleeding, No Transfusions History, No Lymphadenopathy Endocrine: No Polyuria, No Polydipsia, No Temperature Intoleranceall noted and negative except for above Physical Exam Physical Exam: General- oriented x 3, not in distress, speaks in sentences with no effort or accessory muscle use, cachetic , chronically ill Eyes- anicteric Neck- no JVD Lungs- clear breath sounds bilaterally, no rales/wheezes Heart- normal rate, regular rhythm; no murmurs Abdomen- normal bowel sounds, nondistended, soft, nontender Extremities- no pretibial edema, no calf tenderness Neuro- alert, oriented x 3; no gross focal neurologic deficits Skin- warm & dry Results & Data Vital Signs (Past 12 Hours) Vital Signs Temp Pulse Pulse Resp BP BP BP 07/23/25 13:46 36.9 C 97 H 14 101/63 07/23/25 12:48 36.7 C 108 H 16 119/70 07/23/25 12:19 36.5 C 98 H 16 120/73 07/23/25 12:18 36.5 C 98 H 16 120/73 07/23/25 12:03 36.7 C 100 H 18 113/70 07/23/25 11:49 36.9 C 102 H 16 114/72 07/23/25 11:32 36.9 C 103 H 16 114/72 07/23/25 10:35 36.7 C 103 H 16 115/72 07/23/25 10:05 36.7 C 105 H 16 119/76 07/23/25 09:50 36.8 C 106 H 16 117/75 07/23/25 09:38 07/23/25 09:35 37.0 C 105 H 14 101/63 07/23/25 07:51 36.6 C 114 H 21 92/62 L 07/23/25 06:40 37.1 C 120 H 16 96/59 L 07/23/25 05:48 36.9 C 124 H 16 07/23/25 05:34 124 H 88/52 L 83/52 L Pulse Ox O2 Del Method 07/23/25 13:46 97 07/23/25 12:48 97 07/23/25 12:19 98 07/23/25 12:18 97 07/23/25 12:03 97 07/23/25 11:49 97 07/23/25 11:32 97 07/23/25 10:35 97 07/23/25 10:05 96 07/23/25 09:50 95 07/23/25 09:38 Room Air 07/23/25 09:35 96 07/23/25 07:51 97 Room Air 07/23/25 06:40 95 Room Air 07/23/25 05:48 97 Room Air 07/23/25 05:34 Laboratory Results Abnormal lab results 07/22/25 07/23/25 07/23/25 Range/Units 21:30 07:36 14:07 RBC 2.57 L 1.77 L (4.70-6.10) M/uL Hgb 8.7 L 6.0 L* (14.0-18.0) g/dl Hct 26.4 L 18.8 L* (42.0-52.0) % MCV 102.7 H 106.2 H (80.0-100.0) fL MCHC 31.9 L (32.0-36.0) g/dL RDW Std Deviation 54.0 H 55.5 H (36.4-46.3) fL Plt Count 96 L 78 L (130-400) K/uL Neut # (Auto) 7.20 H (1.40-6.50) K/uL [place] # (Auto) 0.81 H 0.98 H (0.11-0.59) K/uL PT 16.0 H 20.0 H (9.0-12.0) Seconds INR 1.6 H 2.0 H (0.9-1.1) Anion Gap 12 H (3-11) BUN 41 H (6-23) mg/dl Creatinine 2.50 H D (0.6-1.4) mg/dl Glucose 109 H (70-99(Fasting)) mg/dl Lactate 3.9 H* 2.6 H* (0.4-2.0) mmol/L Calcium 8.4 L (8.6-10.3) mg/dl Total Bilirubin 1.8 H (0.2-1.0) mg/dl AST 47 H (13-39) U/L Alkaline Phosphatase 125 H (34-104) U/L Total Protein 5.4 L (6.0-8.3) gm/dl Albumin 2.5 L (3.4-5.0) gm/dl Crossmatch See Detail Diagnostic Findings Chest X-Ray 07/20/25 16:15 Clinical History: Sepsis Technique: A frontal view of the chest was obtained Findings: There are no confluent pulmonary infiltrates. The heart size is within normal limits. No pleural effusion or pneumothorax is seen. There is no definite pulmonary nodule. No fracture is noted. No foreign body is seen Impression: No active disease Electronically signed by Gabriel Vera 07-20-2025 5:00 PM Abdomen/Pelvis CT 07/20/25 17:08 EXAMINATION: CT of the abdomen and pelvis performed without contrast TECHNIQUE: Helical CT images from the lung bases through the symphysis pubis were obtained without contrast. Coronal and sagittal reformatted images were generated at a workstation for further assessment. Dose reduction techniques were achieved by using automatic exposure control and/or adjustment of mA and/or kV according to patient size and/or use of iterative reconstruction technique. COMPARISON: None HISTORY: Elevated LFTs FINDINGS: Lower chest: No consolidation. No pleural effusion or pneumothorax. Liver: Posterior right hepatic lobe lesion measuring 6.7 x 5.4 cm, is internally heterogeneous with scattered low-density areas. Anterior left hepatic lobe lesion measuring 3.3 x 1.8 cm is hyperattenuating. Gallbladder: No gallstones. No evidence of acute cholecystitis. Spleen: Normal size. Pancreas: No suspicious pancreatic lesions. The pancreatic duct is not dilated. Adrenal glands: No adrenal nodules. Kidneys: No hydronephrosis or obstructing renal stones. Bladder / Pelvic organs: Unremarkable. Bowel: No bowel obstruction. No abnormal bowel wall thickening. The appendix is unremarkable. There is a moderate esophageal hiatal hernia. Sigmoid diverticulosis without diverticulitis. Lymph nodes: No retroperitoneal, mesenteric, or pelvic lymphadenopathy. Peritoneum / Retroperitoneum: There is a large volume of ascites. Vessels: No infrarenal aortic aneurysm. Heavy aortoiliac calcification. Bones and soft tissues: No suspicious lesion in the bones. IMPRESSION: There is a large heterogeneous mass in the posterior right lobe of the liver, which is nonspecific, for benign and malignant etiologies, however the findings are concerning for neoplasm. An abscess is in the differential, however seems less likely. A higher attenuating nodular area in the anterior left lobe, may also represent a mass. Large volume ascites. Electronically signed by Ashwin Vivar 07-20-2025 6:[address] 07/20/25 19:15 Exam(s): CT CHEST Without Contrast EXAM: CT Chest Without Intravenous Contrast CLINICAL HISTORY: Reason for exam: copd, liver mass, met dis. TECHNIQUE: Axial computed tomography images of the chest without intravenous contrast. CTDI is 6 mGy and DLP is 221.88 mGy-cm. Automated exposure control was utilized for the study. A dose lowering technique was utilized adhering to the principles of ALARA. COMPARISON: Chest x-ray 07/20/2025 FINDINGS: Lungs: Scarring in the right upper lobe. Subsegmental atelectasis in the left lower lobe. No consolidation. No suspicious nodule. Calcified granuloma at the left apex measuring 3 mm. Pleural space: No pleural effusion or pneumothorax. Heart: Severe coronary artery calcifications. Heart size is normal. Mediastinum: Moderate hiatal hernia. Ascites within the hernia sac and upper abdomen. Bones/joints: Superior endplate compression fracture at T10 which is age indeterminate. Potentially acute. No posterior cortical retropulsion. Subacute to chronic appearing left anterior second rib fracture. No acute appearing fracture. Soft tissues: Unremarkable. Vasculature: Advanced aortic valvular calcifications. Lymph nodes: Unremarkable. Liver: Multiple lesions in the liver largest in the right hepatic lobe measuring 4.9 x 3.6 cm. IMPRESSION: 1. No evidence of metastatic disease in the chest. 2. Superior endplate compression fracture at T10 which is age indeterminate. Potentially acute. No posterior cortical retropulsion. 3. Multiple lesions in the liver largest in the right hepatic lobe measuring 4.9 x 3.6 cm. 4. Moderate hiatal hernia. Ascites within the hernia sac and upper abdomen. 5. Severe coronary artery and aortic valvular calcifications. Electronically signed by: Alec Nina MD 07/20/25 20:46 PM Paracentesis Ultrasound 07/21/25 00:00 ULTRASOUND-GUIDED PARACENTESIS CLINICAL HISTORY: Ascites PROCEDURE: Procedure and risks were explained. Informed consent was obtained. A final timeout was completed. A pocket of ascites was identified in the left lower quadrant. The left lower quadrant was prepped and draped in sterile fashion. 1% lidocaine was utilized for skin anesthesia. Utilizing ultrasound guidance, a 5 Icelandic safety centesis catheter was advanced into the pocket of ascites. Ultrasound image was obtained. A total of 3.1 L of yellow ascites fluid was removed, with 1 L sent to lab for analysis. The catheter was removed and Band-Aid applied. The patient tolerated the procedure well. Vital signs will be monitored postprocedure. IMPRESSION: Ultrasound-guided paracentesis as above. Performed, dictated, and signed by Rizwan Arreguin PA-C; to be co-signed by Dr. Fitz Menjivar. Electronically signed by: Fitz Menjivar M.D. 07/21/2025 3:40 PM Medications Administered Home Medications Medication Instructions Recorded Confirmed Last Taken No Known Home Medications 07/20/25 07/20/25 Unknown Active Medications Generic Name Dose Route Start Last Admin Trade Name Freq PRN Reason Stop Dose Admin Amoxicillin/Clavulanate Potassium 1 tab 07/22/25 17:00 07/22/25 17:27 Amoxicillin/Clavulanate 500 Mg Tab PO 08/01/25 16:59 1 tab BIDM JESSICA Administration Protocol Calcium Carbonate 500 mg 07/22/25 10:07 07/22/25 21:48 Calcium Carbonate 500 Mg Chewable Tab PO 08/21/25 10:06 500 mg Q6H PRN Administration Indigestion Ceftriaxone Sodium 1,000 mg in 50 mls @ 100 mls/hr 07/23/25 06:00 07/23/25 06:49 Rocephin IV 08/02/25 05:59 Infused Q24H JESSICA Infusion Sodium Chloride 1,000 mls @ 125 mls/hr 07/23/25 07:45 07/23/25 07:38 Nss IV 07/26/25 07:44 125 mls/hr .Q8H JESSICA Administration Octreotide Acetate 500 mcg/ 100.5 mls @ 10.05 mls/hr 07/23/25 08:15 07/23/25 08:49 Sodium Chloride IV 08/22/25 08:14 50 mcg/hr .Q10H JESSICA 10.1 mls/hr Administration 50 MCG/HR Lactobacillus Acidophilus 1,250 mg 07/22/25 14:40 07/23/25 09:03 Advanced Probiotic 625 Mg Capsule PO 08/21/25 14:39 Not Given DAILY JESSICA Melatonin 3 mg 07/21/25 00:12 07/22/25 21:48 Melatonin 3 Mg Tab PO 08/20/25 00:11 3 mg HS PRN Administration Sleep Polyethylene Glycol 17 gm 07/21/25 09:00 07/23/25 09:03 Polyethylene (Miralax) 17 Gm Pack PO 08/20/25 08:59 Not Given DAILY JESSICA
[2025-07-23 14:48] LABS: Hematocrit (blood only) 31.9 % (42.0-52.0); Hemoglobin 10.4 g/dl (14.0-18.0); Mean Corpuscular Hemoglobin 29.9 pg (25.0-34.0); Mean Corpuscular Volume 91.7 fL (80.0-100.0); Platelet Count 69 K/uL (130-400); RDW Standard Deviation 65.9 fL (36.4-46.3); Red Blood Count 3.48 M/uL (4.70-6.10); White Blood Count 8.49 K/ul (4.8-10.8)
[2025-07-23 15:08] LABS: Anisocytosis Present; Immature Granulocytes # (auto) 0.03 K/uL (0.01-0.20); Immature Granulocytes % (auto) 0.4 %; Polychromasia 1+
--- NOTE | 2025-07-23 15:46 | Communication Note ---
Date of Service: July 23, 2025 EGD performed, severe reflux esophagitis noted, with a visible vessel cauterized near the GE junction. Large hiatal hernia. No esophageal varices, gastric varices or portal hide gastropathy noted. No gastric or duodenal ulcers seen. No active bleeding noticed. Recommendation is to start liquid diet and advance as tolerated. Monitor H&H and for any signs of bleeding. Okay to stop octreotide drip, however continue pantoprazole drip for 24 to 48 hours Full endoscopy note to follow in provation
--- NOTE | 2025-07-23 16:01 | Hospitalist Progress Note ---
Date of Service July 23, 2025 Assessment & Plan (1) Liver masses: (2) Ascites of liver: (3) Electrolyte abnormality: (4) Acute kidney injury: (5) Severe protein-calorie malnutrition: (6) Lactic acidosis: (7) Pruritus due to systemic disorder: Plan Patient 64-year-old gentleman presents with pruritus, weight loss and weakness. Evaluation shows liver masses and ascites highly concerning for liver cancer. Admit to [facility] Interventional radiology for liver biopsy and paracentesis Patient did have recent dental surgery, tooth extraction, patient's procalcitonin is elevated. Lower suspicion for infectious process but will cover with antibiotics, Zosyn, until blood cultures are resulted. Many cancers also cause an increased procalcitonin. Echocardiogram for cardiac murmur evaluation Replace electrolytes Hyponatremia most likely due to poor oral intake and volume depletion Suspect renal dysfunction due to poor oral intake, volume depletion, overall debilitated state. Continue to monitor electrolytes and kidney function Check alpha-fetoprotein level CT of the chest for further evaluation of any type of metastatic disease or primary Patient declined nicotine replacement Patient reports that his last alcoholic beverage was greater than 1 month ago, will low suspicion for any alcohol withdrawal symptoms Discussed advanced directives with patient request DNR/DNI 07/21 discussed with IR Deepak Arreguin will start with IR paracentesis with cytology studies hold off on Liver Biopsy for now Hyponatremia improving Crea improved from 1.8 to 1.9 continue IV fluids ff up cultures on empiric Zosyn echo: mild to moderate mitral regurgitation K and Mg improving Acute 10 Fracture: no back pain 07/22 stable overall ascites fluid: no WBC ascites fluid pathology: pending Na 133 Crea stable at 1.9 d/c IV lfuids cultures negative so far de escalate to augmentin pt/ot ordered anticipate d/c tomorrow 07/23 Upper GI bleed Acute blood loss anemia secondary to above Hemoglobin 6.0, 2 units ordered of packed RBCs Repeat hemoglobin 10 Repeat at 6 PM and 12 midnight Status post EGD showing severe reflux esophagitis, with cauterization of 1 vessel GI okay for clear liquid diet, stop octreotide Continue Protonix drip x 24-48 hrs Acute kidney injury Creatinine increased to 2.5 from 1.8 Continue IV fluids Monitor closely Ashish Soto MD Admission and Anticipated Discharge Date Admission Date: July 20, 2025 Subjective Events overnight noted Transferred to PCU for hematemesis, started on Protonix drip and ceftriaxone Seen at the bedside around 8 AM Feels okay overall, just tired Had 2 episodes of hematemesis this morning Denies abdominal pain No shortness of breath, chest pain, dizziness, nausea Requesting for sips of water and ice chips Hemoglobin 6.0 2 units of packed RBCs ordered Repeat CBC after transfusion completed Discussed with GI Dr. Arredondo Plan for EGD this afternoon Review of Systems Review of Systems: all noted and negative except for above Physical Exam Physical Exam: General- oriented x 3, not in distress, speaks in sentences with no effort or accessory muscle use Eyes- anicteric Neck- no JVD Lungs- clear breath sounds bilaterally Heart- normal rate, regular rhythm; no murmurs Abdomen- normal bowel sounds, nondistended, soft, nontender Extremities- no pretibial edema, no calf tenderness Neuro- alert, oriented x 3; no gross focal neurologic deficits Skin- warm & dry Results & Data Results & Data Vital Signs (Past 12 Hours) Vital Signs Temp Pulse Pulse Pulse Resp BP BP 07/23/25 15:40 84 16 112/70 07/23/25 15:30 36.5 C 81 14 104/72 07/23/25 15:20 79 14 113/70 07/23/25 15:12 36.0 C L 78 16 116/67 07/23/25 13:46 36.9 C 97 H 14 10107/23/25 12:48 36.7 C 108 H 16 119/70 07/23/25 12:19 36.5 C 98 H 16 120/73 07/23/25 12:18 36.5 C 98 H 16 120/73 07/23/25 12:03 36.7 C 100 H 18 113/70 07/23/25 11:49 36.9 C 102 H 16 114/72 07/23/25 11:32 36.9 C 103 H 16 114/72 07/23/25 10:35 36.7 C 103 H 16 115/72 07/23/25 10:05 36.7 C 105 H 16 119/76 07/23/25 09:50 36.8 C 106 H 16 117/75 07/23/25 09:38 07/23/25 09:35 37.0 C 105 H 14 101/63 07/23/25 07:51 36.6 C 114 H 21 92/62 L 07/23/25 06:40 37.1 C 120 H 16 96/59 L 07/23/25 05:48 36.9 C 124 H 16 07/23/25 05:34 124 H 88/52 L BP Pulse Ox O2 Del Method O2 Flow Rate 07/23/25 15:40 96 Room Air 07/23/25 15:30 96 Room Air 07/23/25 15:20 100 Room Air 07/23/25 15:12 98 Oxymask 6 07/23/25 13:46 97 07/23/25 12:48 97 07/23/25 12:19 98 07/23/25 12:18 97 07/23/25 12:03 97 07/23/25 11:49 97 07/23/25 11:32 97 07/23/25 10:35 97 07/23/25 10:05 96 07/23/25 09:50 95 07/23/25 09:38 Room Air 07/23/25 09:35 96 07/23/25 07:51 97 Room Air 07/23/25 06:40 95 Room Air 07/23/25 05:48 97 Room Air 07/23/25 05:34 83/52 L all noted and reviewed including below
--- NOTE | 2025-07-23 16:54 | Anesthesiology Progress Note ---
Date of Service July 23, 2025 Anesthesia Post Procedure Vital Signs Vital Signs: Temp Pulse Pulse Pulse Resp BP BP 07/23/25 16:22 36.5 C 90 16 128/87 07/23/25 16:10 87 07/23/25 16:00 36.4 C L 88 16 124/66 07/23/25 15:40 84 16 112/70 07/23/25 15:30 36.5 C 81 14 104/72 07/23/25 15:20 79 14 113/70 07/23/25 15:12 36.0 C L 78 16 116/67 07/23/25 13:46 36.9 C 97 H 14 101/63 07/23/25 13:15 105 H 07/23/25 12:48 36.7 C 108 H 16 119/70 07/23/25 12:19 36.5 C 98 H 16 120/73 07/23/25 12:18 36.5 C 98 H 16 120/73 07/23/25 12:03 36.7 C 100 H 18 113/70 07/23/25 11:49 36.9 C 102 H 16 114/72 07/23/25 11:32 36.9 C 103 H 16 114/72 07/23/25 10:35 36.7 C 103 H 16 115/72 07/23/25 10:05 36.7 C 105 H 16 119/76 07/23/25 09:50 36.8 C 106 H 16 117/75 07/23/25 09:38 07/23/25 09:35 37.0 C 105 H 14 101/63 07/23/25 07:51 36.6 C 114 H 21 92/62 L 07/23/25 06:40 121 H 07/23/25 06:40 37.1 C 120 H 16 96/59 L 07/23/25 05:48 36.9 C 124 H 16 07/23/25 05:34 124 H 88/52 L 07/23/25 00:10 37.2 C 114 H 16 07/22/25 22:08 37.0 C 119 H 18 89/60 L 07/22/25 21:44 36.9 C 117 H 16 07/22/25 20:10 BP Pulse Ox O2 Del Method O2 Flow Rate 07/23/25 16:22 97 Room Air 07/23/25 16:10 07/23/25 16:00 96 Room Air 07/23/25 15:40 96 Room Air 07/23/25 15:30 96 Room Air 07/23/25 15:20 100 Room Air 07/23/25 15:12 98 Oxymask 6 07/23/25 13:46 97 07/23/25 13:15 07/23/25 12:48 97 07/23/25 12:19 98 07/23/25 12:18 97 07/23/25 12:03 97 07/23/25 11:49 97 07/23/25 11:32 97 07/23/25 10:35 97 07/23/25 10:05 96 07/23/25 09:50 95 07/23/25 09:38 Room Air 07/23/25 09:35 96 07/23/25 07:51 97 Room Air 07/23/25 06:40 07/23/25 06:40 95 Room Air 07/23/25 05:48 97 Room Air 07/23/25 05:34 83/52 L 07/23/25 00:10 107/61 96 Room Air 07/22/25 22:08 86/55 L 96 Room Air 07/22/25 21:44 92/53 L 96 Room Air 53 07/22/25 20:10 Room Air Transfer of Care Handoff Completed per policy Notes Mental Status: alert / awake / arousable and participated in evaluation Patient Amnestic to Procedure: Yes Nausea / Vomiting: adequately controlled Pain: adequately controlled Airway Patency, RR, SpO2: stable & adequate BP & HR: stable & adequate Hydration State: stable & adequate Anesthetic Complications: no major complications apparent and Pt Satisfied with anesthetic care
--- NOTE | 2025-07-23 16:54 | GI REPORT ---
[facility] Patient: JAIDA WILSON : 1960 Sex at : Male Age: 64 Years Procedure: Upper GI endoscopy Date: 07/23/2025 Attending Physician: Collins Arredondo MD Referring MD: Ashish Soto Indications: - Acute post hemorrhagic anemia - Suspected upper gastrointestinal bleeding Medications: - General Anesthesia - See the Anesthesia note for documentation of the administered medications Complications: - No immediate complications. Estimated Blood Loss: - Estimated blood loss was minimal. Procedure: - Prior to the procedure, a History and Physical was performed, and patient medications and allergies were reviewed. The patient's tolerance of previous anesthesia was also reviewed. The risks and benefits of the procedure and the sedation options and risks were discussed with the patient. All questions were answered, and informed consent was obtained. Prior Anticoagulants: The patient has taken no anticoagulant or antiplatelet agents except for aspirin, last dose was 3 days prior to procedure. ASA Grade Assessment: III - A patient with severe systemic disease. After reviewing the risks and benefits, the patient was deemed in satisfactory condition to undergo the procedure. - The T1 egd scope was introduced through the mouth and advanced to the second part of the duodenum. - The upper GI endoscopy was accomplished without difficulty. - The patient tolerated the procedure well. Findings: - LA Grade D (one or more mucosal breaks involving at least 75% of esophageal circumference) esophagitis with no bleeding was found in the lower third of the esophagus. there was a visible vessel close to GE junction, which could represent the source of recent coffee-ground emesis, this was adequately cauterized with BiCap with complete hemostasis . No active bleeding was seen - A large, 5 cm hiatal hernia was present. - The second portion of the duodenum was normal. - No portal hypertension gastropathy, esophageal or gastric varices seen Impression: - LA Grade D reflux esophagitis with no bleeding. - there was a visible vessel close to GE junction, which could represent the source of recent coffee-ground emesis, this was adequately cauterized with BiCap with complete hemostasis . No active bleeding was seen. - Large, 5 cm hiatal hernia. - Normal second portion of the duodenum. - No portal hypertension gastropathy, esophageal or gastric varices seen - No specimens collected. Recommendation: - Please continue PPI gtt for another 24-20 48 hrs. ok to stop octreotide. ok to resume clear liquids, monitor H/Hand signs of GI bleeding Procedure Code(s): - 63963, Esophagogastroduodenoscopy, flexible, transoral; diagnostic, including collection of specimen(s) by brushing or washing, when performed (separate procedure) Diagnosis Code(s): - D62, Acute posthemorrhagic anemia - K21.00, Gastro-esophageal reflux disease with esophagitis, without bleeding - K44.9, Diaphragmatic hernia without obstruction or gangrene CPT(R) - 202 copyright [employer]. All Rights Reserved. The CPT codes, CCI edits and ICD codes generated are intended as suggestions and were generated based on input data. These codes are preliminary and upon pipe line walker review may be revised to meet current compliance and payer requirements. The provider is responsible for the final determination of appropriate codes, and modifiers. Collins Arredondo MD This document has been electronically signed. Note Initiated:07/23/2025 Note Completed:07/23/2025 4:52 PM [email or web address]\Data\Provation\Results\LIVE\[id number]
[2025-07-23 18:44] LABS: Hematocrit (blood only) 31.2 % (42.0-52.0); Hemoglobin 10.2 g/dl (14.0-18.0); Mean Corpuscular Hemoglobin 30.2 pg (25.0-34.0); Mean Corpuscular Volume 92.3 fL (80.0-100.0); Platelet Count 61 K/uL (130-400); RDW Standard Deviation 69.4 fL (36.4-46.3); Red Blood Count 3.38 M/uL (4.70-6.10); White Blood Count 7.96 K/ul (4.8-10.8)
[2025-07-23 18:55] LABS: Anisocytosis Present; Immature Granulocytes # (auto) 0.04 K/uL (0.01-0.20); Immature Granulocytes % (auto) 0.5 %; Polychromasia 1+
[2025-07-23] MEDS: PANTOprazole 40 MG/10 ML SYR IV SCH (19:29)
[2025-07-24 00:45] LABS: Hematocrit (blood only) 26.0 % (42.0-52.0); Hemoglobin 8.9 g/dl (14.0-18.0); Immature Granulocytes # (auto) 0.02 K/uL (0.01-0.20); Immature Granulocytes % (auto) 0.3 %; Mean Corpuscular Hemoglobin 31.3 pg (25.0-34.0); Mean Corpuscular Volume 91.5 fL (80.0-100.0); Platelet Count 46 K/uL (130-400); RDW Standard Deviation 69.0 fL (36.4-46.3); Red Blood Count 2.84 M/uL (4.70-6.10); White Blood Count 6.27 K/ul (4.8-10.8)
[2025-07-24 01:38] LABS: Anisocytosis Present; Polychromasia 1+
[2025-07-24 07:19] LABS: Hematocrit (blood only) 29.6 % (42.0-52.0); Hemoglobin 9.7 g/dl (14.0-18.0); Mean Corpuscular Hemoglobin 30.0 pg (25.0-34.0); Mean Corpuscular Volume 91.6 fL (80.0-100.0); Platelet Count 60 K/uL (130-400); RDW Standard Deviation 70.0 fL (36.4-46.3); Red Blood Count 3.23 M/uL (4.70-6.10); White Blood Count 7.51 K/ul (4.8-10.8)
[2025-07-24 07:56] LABS: Anisocytosis Present; Immature Granulocytes # (auto) 0.04 K/uL (0.01-0.20); Immature Granulocytes % (auto) 0.5 %; Polychromasia 1+
[2025-07-24] MEDS ORDERED: PANTOPRAZOLE BOLUS/DRIP IV STA (08:37)
[2025-07-24 09:31] LABS: Alanine Aminotransferase 88.0 U/L (7-52); Albumin Globulin Ratio 0.8 (0.9-2); Albumin Level 2.3 gm/dl (3.4-5.0); Alkaline Phosphatase 131.0 U/L (34-104); Anion Gap 8.0 (3-11); Bilirubin,Total 2.4 mg/dl (0.2-1.0); Blood Urea Nitrogen 42.0 mg/dl (6-23); Calcium 8.2 mg/dl (8.6-10.3); Carbon Dioxide 24.0 mmol/L (21-32); Chloride 100.0 mmol/L (98-107); Creatinine Clr Calc Pharmacy 19.0 ml/min; Globulin 3.0 gm/dl (2.5-4.0); Glucose 152.0 mg/dl (70-99(Fasting)); Magnesium 1.6 mg/dl (1.7-2.4); Potassium 3.6 mmol/L (3.5-5.1); Sodium 132.0 mmol/L (136-145); Total Protein 5.3 gm/dl (6.0-8.3)
[2025-07-24] MEDS: PANTOprazole 40 MG in DEXTROSE 5% MINI-B 100 ML IV SCH (09:40)
--- NOTE | 2025-07-24 11:47 | Hospitalist Progress Note ---
Date of Service July 24, 2025 Assessment & Plan (1) Liver masses: (2) Ascites of liver: (3) Electrolyte abnormality: (4) Acute kidney injury: (5) Severe protein-calorie malnutrition: (6) Lactic acidosis: (7) Pruritus due to systemic disorder: Plan Patient 64-year-old gentleman presents with pruritus, weight loss and weakness. Evaluation shows liver masses and ascites highly concerning for liver cancer. Admit to [facility] unit Interventional radiology for liver biopsy and paracentesis Patient did have recent dental surgery, tooth extraction, patient's procalcitonin is elevated. Lower suspicion for infectious process but will cover with antibiotics, Zosyn, until blood cultures are resulted. Many cancers also cause an increased procalcitonin. Echocardiogram for cardiac murmur evaluation Replace electrolytes Hyponatremia most likely due to poor oral intake and volume depletion Suspect renal dysfunction due to poor oral intake, volume depletion, overall debilitated state. Continue to monitor electrolytes and kidney function Check alpha-fetoprotein level CT of the chest for further evaluation of any type of metastatic disease or primary Patient declined nicotine replacement Patient reports that his last alcoholic beverage was greater than 1 month ago, w ill low suspicion for any alcohol withdrawal symptoms Discussed advanced directives with patient request DNR/DNI 07/21 discussed with IR Deepak Arreguin will start with IR paracentesis with cytology studies hold off on Liver Biopsy for now Hyponatremia improving Crea improved from 1.8 to 1.9 continue IV fluids ff up cultures on empiric Zosyn echo: mild to moderate mitral regurgitation K and Mg improving Acute 10 Fracture: no back pain 07/22 stable overall ascites fluid: no WBC ascites fluid pathology: pending Na 133 Crea stable at 1.9 d/c IV lfuids cultures negative so far de escalate to augmentin pt/ot ordered anticipate d/c tomorrow 07/23 Upper GI bleed Acute blood loss anemia secondary to above Hemoglobin 6.0, 2 units ordered of packed RBCs Repeat hemoglobin 10 Repeat at 6 PM and 12 midnight Status post EGD showing severe reflux esophagitis, with cauterization of 1 vessel GI okay for clear liquid diet, stop octreotide Continue Protonix drip x 24-48 hrs Acute kidney injury Creatinine increased to 2.5 from 1.8 Continue IV fluids Monitor closely 07/24 Upper GI bleed secondary to esophagitis, bleeding vessel Status post EGD with cauterization of bleeding vessel 2 units packed RBCs ordered Hemoglobin stable at around 9-10 Continue Protonix drip for another 24 hours Clear liquids for now Acute kidney injury Creatinine remains at 2.5 Continue IV fluids Monitor closely Ashish Soto MD Admission and Anticipated Discharge Date Admission Date: July 20, 2025 Subjective Seen resting in bed, comfortable, not in distress Still weak but feels less tired than yesterday No recurrence of hematemesis No abdominal pain or nausea Tolerating clear liquids No BMs yet No fevers or chills Reports increased itchiness today Review of Systems Review of Systems: all noted and negative except for above Physical Exam Physical Exam: General- oriented x 3, not in distress, speaks in sentences with no effort or accessory muscle use Eyes- anicteric Neck- no JVD Lungs- clear breath sounds bilaterally, no rales/wheezes Heart- normal rate, regular rhythm; no murmurs Abdomen- normal bowel sounds, nondistended, soft, nontender Extremities- no pretibial edema, no calf tenderness Neuro- alert, oriented x 3; no gross focal neurologic deficits Skin- warm & dry Results & Data Results & Data Vital Signs (Past 12 Hours) Vital Signs Temp Pulse Resp BP Pulse Ox O2 Del Method 07/24/25 10:42 36.3 C L 94 H 22 139/77 93 Room Air 07/24/25 07:27 36.3 C L 98 H 21 155/84 H 92 Room Air 07/24/25 02:52 36.6 C 97 H 16 125/81 94 Room Air all noted and reviewed including below
[2025-07-24] MEDS: diphenhydrAMINE 2%/ZINC 0.1% CREAM 28.4GM TUBE EXT PRN (13:00)
[2025-07-24] MEDS: SODIUM CHLORIDE 0.9% 1,000 ML IV SCH (13:00)
--- NOTE | 2025-07-24 13:33 | Communication Note ---
Date of Service: July 24, 2025 Subjective: No further episodes of hematemesis Feeling fine Vital signs stable Exam not changed Assessment and plan: Severe LA class D esophagitis with stigmata of recent bleeding status post hemostasis yesterday. Suggest continuing Protonix drip for another 24 hours before switching to twice daily regimen Still waiting for IR guided biopsies for liver lesions Recommend repeating EGD in 8 to 10 weeks after mucosal healing takes place to ensure no underlying esophageal pathology Okay to advance diet
[2025-07-24] MEDS ORDERED: Nursing to Pharmacy Communication SCH (23:30)
[2025-07-25] MEDS ORDERED: PROMETHAZINE 6.25 MG/50.25 ML BAG IV PRN (02:50)
[2025-07-25 04:51] LABS: Alanine Aminotransferase 86.0 U/L (7-52); Albumin Globulin Ratio 0.7 (0.9-2); Albumin Level 2.2 gm/dl (3.4-5.0); Alkaline Phosphatase 145.0 U/L (34-104); Anion Gap 9.0 (3-11); Bilirubin,Total 6.2 mg/dl (0.2-1.0); Blood Urea Nitrogen 40.0 mg/dl (6-23); Calcium 8.3 mg/dl (8.6-10.3); Carbon Dioxide 23.0 mmol/L (21-32); Chloride 101.0 mmol/L (98-107); Creatinine Clr Calc Pharmacy 17.8 ml/min; Globulin 3.1 gm/dl (2.5-4.0); Glucose 132.0 mg/dl (70-99(Fasting)); Magnesium 1.6 mg/dl (1.7-2.4); Potassium 3.6 mmol/L (3.5-5.1); Sodium 133.0 mmol/L (136-145); Total Protein 5.3 gm/dl (6.0-8.3)
--- NOTE | 2025-07-25 04:54 | Communication Note ---
Date of Service: July 25, 2025 Patient with hematemesis after coughing episode as per RN. No abdominal pain. Patient later noted to have dark tarry stool. AP Recurrent UGIB CBC now N.p.o. for now Continue PPI
[2025-07-25 05:30] LABS: Hematocrit (blood only) 28.2 % (42.0-52.0); Hemoglobin 9.3 g/dl (14.0-18.0); Mean Corpuscular Hemoglobin 29.8 pg (25.0-34.0); Mean Corpuscular Volume 90.4 fL (80.0-100.0); Platelet Count 53 K/uL (130-400); RDW Standard Deviation 67.6 fL (36.4-46.3); Red Blood Count 3.12 M/uL (4.70-6.10); White Blood Count 7.22 K/ul (4.8-10.8)
--- NOTE | 2025-07-25 05:30 | Electrocardiogram Report ---
Test Reason : Blood Pressure : */* mmHG Vent. Rate : 100 BPM Atrial Rate : 100 BPM P-R Int : 128 ms QRS Dur : 64 ms QT Int : 332 ms P-R-T Axes : * -4 40 degrees QTcB Int : 428 ms Normal sinus rhythm Low voltage QRS Cannot rule out Anterior infarct , age undetermined Abnormal ECG No previous ECGs available Confirmed by Slava Silver ([id number]) on 07/25/2025 5:30:41 AM Referred By: REFERRED SELF Confirmed By: Slava Silver
[2025-07-25 05:31] LABS: Anisocytosis Present; Immature Granulocytes # (auto) 0.04 K/uL (0.01-0.20); Immature Granulocytes % (auto) 0.6 %; Polychromasia 1+
[2025-07-25] MEDS: MAGNESIUM SULFATE / D5W 1 GM/100 ML BAG IV ONE (06:54)
[2025-07-25 09:20] LABS: INR 1.6 (0.9-1.1); Prothrombin Time 16.4 Seconds (9.0-12.0)
[2025-07-25 09:26] LABS: Hematocrit (blood only) 27.4 % (42.0-52.0); Hemoglobin 9.0 g/dl (14.0-18.0); Mean Corpuscular Hemoglobin 29.7 pg (25.0-34.0); Mean Corpuscular Volume 90.4 fL (80.0-100.0); Platelet Count 51 K/uL (130-400); RDW Standard Deviation 66.8 fL (36.4-46.3); Red Blood Count 3.03 M/uL (4.70-6.10); White Blood Count 7.33 K/ul (4.8-10.8)
[2025-07-25 09:27] LABS: Anisocytosis Present; Immature Granulocytes # (auto) 0.03 K/uL (0.01-0.20); Immature Granulocytes % (auto) 0.4 %
[2025-07-25] MEDS: LACTOBACILLUS ACIDOPHILUS 1 GM PACK PO SCH (09:59)
[2025-07-25] MEDS: PHYTONADIONE 2.5 MG in DEXTROSE 5% 50 ML IV ONE (10:47)
--- NOTE | 2025-07-25 10:50 | Nephrology Consultation ---
Date of Consultation July 25, 2025 Assessment & Plan (1) Renal insufficiency: on presentation his creatinine was 2.0 on July 20 and has gradually climbed to 2.8 today. This is likely multifactorial: He has had significant fluid shifts with the paracentesis; has also had significant hypotension for prolonged periods of time shortly after admission. No IV contrast. Also with severe /life-threatening liver disease. Baseline creatinine unknown; most recent outpatient value in [facility] system is from 2012 with a creatinine of 0.9. Unknown baseline creatinine with progressive renal dysfunction since arrival over the past 5 days. Marked volume overload and electrolyte abnormalities -daily basic metabolic panel -will repeat urinalysis with microscopy and urine electrolytes - continue normal saline for now; low threshold to consider 2 day course of albumin IV (2) Disorder of fluid or electrolyte: has had significant electrolyte issues >> hyponatremia, hypomagnesemia, hypokalemia. -continue to check these daily and replete magnesium and potassium as needed - expect hypomagnesemia to worsen on high-dose Protonix - hyponatremia relates most likely to volume overload with liver dysfunction; would not work actively to treat just now but would monitor; specifically no fluid limit at this time since he is on a liquid diet to the extent he is on any diet at all because of upper GI bleeding (3) Liver masses: work up in process; presumed malignant chronically elevated lactate since arrival in 's and 's; minimal AG; no e/o severe acid base perturbation; lactate likely from mass/inflammation (4) Acute blood loss anemia: per primary service and GI; serial hemoglobin; continue Protonix History of Present Illness Reason for Consultation: acute renal failure Requesting Physician: Dr Soto Attending Physician: Ashish Soto MD History of Present Illness 64 y/o M whom I'm asked to see for acute renal failure was admitted here on 07/20 for management of abnormal labs and evaluation of 6.7 cm R hepatic lobe liver mass concerning for malignancy after presenting with weight loss, generalized weakness, and pruritis. Pt denies known medical problems or prescription medications. He does have a history of longstanding EtOH abuse, though stopped approx 6 wks back. He also had some teeth extracted a few weeks back. Also w/ h/o heavy tobacco use but more recently only a few cigarettes daily. He presented w/ 3.5 wks of severe fatigue, wt loss, intractable pruritis after over 10 years of not accessing routine medical care. Outpatient laboratory studies showed significant laboratory abnormalities including abnormal LFTs and anemia. initial work up showed liver mass, signficiant edema, liver enzyme and renal function abnormalities. He underwent a diagnostic and therapeutic 3.1 L paracentesis on July 21. On July 23, he underwent EGD, with findings of severe reflux esophagitis and a visible vessel cauterized near the GE junction; noted also to have large hiatal hernia. No esophageal or gastric varices or portal hypertensive gastropathy or gastric or duodenal ulcers seen. in the wake of these EGD findings, octreotide was stopped and the patient was started on 48 hour course of pantoprazole. Pantoprazole as continued after the patient apparently had further upper GI bleeding attributed by GI to his severe erosive esophagitis. If hgb drops again, repeat EGD will certainly be considered. AFP is 2757. blood and peritoneal fluid cultures from admission are all negative. Full endoscopy note to follow in proHe has not had any IV contrast exposure. He did have protracted hypotension with systolic blood pressures in the 80s and 90s for the most part from presentation on July 20 through morning July 23. He is currently on empiric Augmentin and ceftriaxone. He has received multiple L of normal saline including some with potassium supplementation. Also 3 doses of albumin IV. Currently maintained on normal saline at 60 mL hourly. Had some bleeding from his gums for some time after tooth extraction.Tells me he has exertional dyspnea after an extended walk but not generally short distances. Denies edema. Denies reaccumulation of fluid in his abdomen. Denies uncontrolled musculoskeletal pain. No chest pain or palpitations. Itching remains unchanged. No new or worrisome voiding symptoms; denies gross hematuria. Allergies Allergy/AdvReac Type Severity Reaction Status Date / Time No Known Allergies Allergy Verified 07/20/25 19:37 Home Medications Medication Instructions Recorded Confirmed Type No Known Home Medications 07/20/25 07/20/25 History Patient History Social History Smoking Status: Current every day smoker Tobacco Type: Cigarettes Do You Dip or Chew Tobacco: No; Hx Alcohol Use: Yes Alcohol type: hard liquor Hx Substance Use: Yes Last Used Substance: Days (ago) Preferred Language: Telugu Communication Ability: Effective Bridge Attacher Required: No Beliefs That Will Affect Care: None Current Living Situation: Spouse Feels Safe at Home: Yes Safety Concerns: Feels Safe At This Time Assistive Devices: None Review of Systems 2 Review of Systems: All systems reviewed & are unremarkable except as noted in HPI & below Physical Exam 2 Constitutional: well developed, + cachectic and cooperative; no acute distress Eyes: + anicteric sclerae and EOM intact bilat erally ENMT: Mouth: + dry oral mucous membranes Respiratory: normal respiratory effort Auscultation: + diminished lung sounds Cardiovascular: Rate/Rhythm: + tachycardic Extremities: no edema Gastrointestinal (Abdomen): Inspection/Auscultation: + abdomen distended and normal bowel sounds Percussion/Palpation: abdomen soft and + ascites; abdomen nontender Musculoskeletal: Extremities: strength 5/5 throughout Skin: no rashes, warm and dry Neurologic: servin, fluent speech, no tremor Psychiatric: Orientation: alert and oriented x 3 Results & Data Vital Signs (Past 12 Hours) Vital Signs Temp Pulse Resp BP Pulse Ox O2 Del Method 07/25/25 07:13 36.3 C L 102 H 21 148/68 H 92 Room Air 07/25/25 03:03 36.4 C L 99 H 16 134/82 93 Room Air Laboratory Results 07/25/25 08:33 07/25/25 03:25 UA > [id number]; urobilinogen and ketones +; no bacteria Diagnostic Findings CT chest 1. No evidence of metastatic disease in the chest. 2. Superior endplate compression fracture at T10 which is age indeterminate. Potentially acute. No posterior cortical retropulsion. 3. Multiple lesions in the liver largest in the right hepatic lobe measuring 4.9 x 3.6 cm. 4. Moderate hiatal hernia. Ascites within the hernia sac and upper abdomen. 5. Severe coronary artery and aortic valvular calcifications. CT a/p Liver: Posterior right hepatic lobe lesion measuring 6.7 x 5.4 cm, is internally heterogeneous with scattered low-density areas. Anterior left hepatic lobe lesion measuring 3.3 x 1.8 cm is hyperattenuating. Gallbladder: No gallstones. No evidence of acute cholecystitis. Spleen: Normal size. Pancreas: No suspicious pancreatic lesions. The pancreatic duct is not dilated. Adrenal glands: No adrenal nodules. Kidneys: No hydronephrosis or obstructing renal stones. Bladder / Pelvic organs: Unremarkable. Bowel: No bowel obstruction. No abnormal bowel wall thickening. The appendix is unremarkable. There is a moderate esophageal hiatal hernia. Sigmoid diverticulosis without diverticulitis. Lymph nodes: No retroperitoneal, mesenteric, or pelvic lymphadenopathy. Peritoneum / Retroperitoneum: There is a large volume of ascites. Vessels: No infrarenal aortic aneurysm. Heavy aortoiliac calcification. Bones and soft tissues: No suspicious lesion in the bones. IMPRESSION: There is a large heterogeneous mass in the posterior right lobe of the liver, which is nonspecific, for benign and malignant etiologies, however the findings are concerning for neoplasm. An abscess is in the differential, however seems less likely. A higher attenuating nodular area in the anterior left lobe, may also represent a mass. Large volume ascites.
--- NOTE | 2025-07-25 11:21 | Gastroenterology Progress Note ---
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 (1) UGIB/Hematemesis. - He underwent EGD 07/23/25 revealing LA grade D esophagitis with hematin in mid/distal esophagus which is suspected source of bleeding. No evidence of portal hypertension on imaging or EGD. No varices noted. He remains on Pantoprazole drip. Octreotide stopped. - Over night he had two more episodes of hematemesis. He also had another melena stool this AM. - He was also incidentally found to have a liver mass. See Plan below. - He denies any fevers, chills, abdominal pain. PLAN - Continue with Protonix drip - Remain NPO. Keep head of bed > 30 degrees. - Continue to monitor for overt signs of active GI bleeding. - Continue to monitor CBC as ordered by primary team. - Source of bleeding is likely mid esophagus. No varices so we'll continue to hold off on Octreotide. This area is not ideal for clipping so Protonix drip is likely the best course of action. However if bleeding persists may consider repeat EGD for APC or clip placement if bleeding continues. (2) Elevated LFTs/Liver Mass - T-Bili 6.2, AST 74, ALT 86, Alk Phos 145, Albumin 2.2 - CT Abd/pelvis - Posterior right hepatic lobe lesion measuring 6.7 x 5.4 cm, is internally heterogeneous with scattered low-density areas. - Alpha fetoprotein pending. PLAN - Paracentesis non-diagnostic. - Agree with AFP. - Check hepatitis serologies. Ordered. - Would recommend further imaging to better characterize lesion. Ideally with Abdominal MRI with liver protocol (which may not be available inpatient) vs Triphasic CT Liver scan. Admission and Anticipated Discharge Date Admission Date: July 20, 2025 Supervising Physician Co-Signing Physician Notes I personally saw and examined the patient. I have reviewed the chart and agree with the documentation provided by the HAND SHOES SEWER including discussion about the assessment, treatment and plan. Briefly, 64yowm with h/o tobacco use, alcohol use (in remission, quit 2 mos ago) is seen today on GI rounds for liver mass and hematemesis. He drinks 1/5 of rum every 3 to 4 days and says he stopped approximately 2 months ago. 1 prior DUI in his 20s. Appears to have a 6.7 cm mass in his right hepatic lobe. Alpha-fetoprotein is pending hepatitis serologies are pending. Currently the issue is upper GI bleeding we did review his endoscopy and looked at the report and he appears to have severe ulcerative esophagitis without varices or portal hypertensive gastropathy. Suspicion is that is what rebled. Keep him n.p.o. today continue the Protonix drip. If he continues to bleed repeat EGD. 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 (1) UGIB/Hematemesis. - He underwent EGD 07/23/25 revealing LA grade D esophagitis with hematin in mid/distal esophagus which is suspected source of bleeding. No evidence of portal hypertension on imaging or EGD. No varices noted. He remains on Pantoprazole drip. Octreotide stopped. - Over night he had two more episodes of hematemesis. He also had another melena stool this AM. - He was also incidentally found to have a liver mass. - He denies any fevers, chills, abdominal pain. (2) Elevated LFTs/Liver Mass - T-Bili 6.2, AST 74, ALT 86, Alk Phos 145, Albumin 2.2 - CT Abd/pelvis - Posterior right hepatic lobe lesion measuring 6.7 x 5.4 cm, is internally heterogeneous with scattered low-density areas. - Alpha fetoprotein pending. Pertinent Diagnostics Hgb 6.0 07/23 => 10.4 07/23 => 9.7 07/24 => 9.0 07/25. BUN 40, Cr 2.75, Na 132, Cl 101, CO2 23, Na 133, K 3.6 T-Bili 6.2, AST 74, ALT 86, Alk Phos 145, Albumin 2.[address] abd/pelvis FINDINGS: Lower chest: No consolidation. No pleural effusion or pneumothorax. Liver: Posterior right hepatic lobe lesion measuring 6.7 x 5.4 cm, is internally heterogeneous with scattered low-density areas. Anterior left hepatic lobe lesion measuring 3.3 x 1.8 cm is hyperattenuating. Gallbladder: No gallstones. No evidence of acute cholecystitis. Spleen: Normal size. Pancreas: No suspicious pancreatic lesions. The pancreatic duct is not dilated. Adrenal glands: No adrenal nodules. Kidneys: No hydronephrosis or obstructing renal stones. Bladder / Pelvic organs: Unremarkable. Bowel: No bowel obstruction. No abnormal bowel wall thickening. The appendix is unremarkable. There is a moderate esophageal hiatal hernia. Sigmoid diverticulosis without diverticulitis. Lymph nodes: No retroperitoneal, mesenteric, or pelvic lymphadenopathy. Peritoneum / Retroperitoneum: There is a large volume of ascites. Vessels: No infrarenal aortic aneurysm. Heavy aortoiliac calcification. Bones and soft tissues: No suspicious lesion in the bones. IMPRESSION: There is a large heterogeneous mass in the posterior right lobe of the liver, which is nonspecific, for benign and malignant etiologies, however the findings are concerning for neoplasm. An abscess is in the differential, however seems less likely. A higher attenuating nodular area in the anterior left lobe, may also represent a mass. Large volume ascites. Electronically signed by Ashwin Vivar 07-20-2025 6:05 PM EGD Impression: - LA Grade D reflux esophagitis with no bleeding. - there was a visible vessel close to GE junction, which could represent the source of recent coffee-ground emesis, this was adequately cauterized with BiCap with complete hemostasis . No active bleeding was seen. - Large, 5 cm hiatal hernia. - Normal second portion of the duodenum. - No portal hypertension gastropathy, esophageal or gastric varices seen - No specimens collected. Recommendation: - Please continue PPI gtt for another 24-20 48 hrs. ok to stop octreotide. ok to resume clear liquids, monitor H/Hand signs of GI bleeding Review of Systems Review of Systems: See HPI Physical Exam Physical Exam: Constitutional: NAD. Alert. Answering questions appropriately. Respiratory: Breathing is even, non-labored. Lungs chaudhary are clear to auscultation anteriorly. Cardiovascular: Regular Rate and Rhythm, no murmurs, rubs or gallops appreciated. Gastrointestinal (Abdomen): Normoactive bowel sounds x4, soft, non-distended, non-tender. Musculoskeletal: Lying in bed comfortably. No peripheral edema. Results & Data Results & Data Vital Signs (Past 12 Hours) Vital Signs Temp Pulse Resp BP Pulse Ox O2 Del Method 07/25/25 07:13 97.3 F L 102 H 21 148/68 H 92 Room Air 07/25/25 03:03 97.5 F L 99 H 16 134/82 93 Room Air PG Care Time/CCT Total # of Minutes Spent Total Time Spent with Patient: Total time spent is greater than 50% in coordination of care (as documented) at patient's floor/unit and/or counseling patient: Coding Level of Care Code 42372 SUB INP/OBS CARE 3/50MIN Diagnoses Acute blood loss anemia D62 Liver masses R16.0 Hematemesis K92.0
[2025-07-25 11:44] LABS: Hematocrit (blood only) 26.9 % (42.0-52.0); Hemoglobin 8.9 g/dl (14.0-18.0); Mean Corpuscular Hemoglobin 29.9 pg (25.0-34.0); Mean Corpuscular Volume 90.3 fL (80.0-100.0); Platelet Count 51 K/uL (130-400); RDW Standard Deviation 66.5 fL (36.4-46.3); Red Blood Count 2.98 M/uL (4.70-6.10); White Blood Count 7.77 K/ul (4.8-10.8)
[2025-07-25 11:55] LABS: Anisocytosis Present; Immature Granulocytes # (auto) 0.06 K/uL (0.01-0.20); Immature Granulocytes % (auto) 0.8 %
--- NOTE | 2025-07-25 15:09 | Hospitalist Progress Note ---
Date of Service July 25, 2025 Assessment & Plan (1) Hematemesis: (2) Acute blood loss anemia: (3) Liver masses: (4) Ascites of liver: (5) Severe protein-calorie malnutrition: (6) Acute kidney injury: Plan: Patient 64-year-old gentleman presents with pruritus, weight loss and weakness. Evaluation shows liver masses and ascites highly concerning for liver cancer. Admit to [facility] unit Interventional radiology for liver biopsy and paracentesis Patient did have recent dental surgery, tooth extraction, patient's procalcitonin is elevated. Lower suspicion for infectious process but will cover with antibiotics, Zosyn, until blood cultures are resulted. Many cancers also cause an increased procalcitonin. Echocardiogram for cardiac murmur evaluation Replace electrolytes Hyponatremia most likely due to poor oral intake and volume depletion Suspect renal dysfunction due to poor oral intake, volume depletion, overall debilitated state. Continue to monitor electrolytes and kidney function Check alpha-fetoprotein level CT of the chest for further evaluation of any type of metastatic disease or primary Patient declined nicotine replacement Patient reports that his last alcoholic beverage was greater than 1 month ago, will low suspicion for any alcohol withdrawal symptoms Discussed advanced directives with patient request DNR/DNI 07/21 discussed with IR Deepak Arreguin will start with IR paracentesis with cytology studies hold off on Liver Biopsy for now Hyponatremia improving Crea improved from 1.8 to 1.9 continue IV fluids ff up cultures on empiric Zosyn echo: mild to moderate mitral regurgitation K and Mg improving Acute 10 Fracture: no back pain 07/22 stable overall ascites fluid: no WBC ascites fluid pathology: pending Na 133 Crea stable at 1.9 d/c IV lfuids cultures negative so far de escalate to augmentin pt/ot ordered anticipate d/c tomorrow 07/23 Upper GI bleed Acute blood loss anemia secondary to above Hemoglobin 6.0, 2 units ordered of packed RBCs Repeat hemoglobin 10 Repeat at 6 PM and 12 midnight Status post EGD showing severe reflux esophagitis, with cauterization of 1 vessel GI okay for clear liquid diet, stop octreotide Continue Protonix drip x 24-48 hrs Acute kidney injury Creatinine increased to 2.5 from 1.8 Continue IV fluids Monitor closely 07/24 Upper GI bleed secondary to esophagitis, bleeding vessel Status post EGD with cauterization of bleeding vessel 2 units packed RBCs ordered Hemoglobin stable at around 9-10 Continue Protonix drip for another 24 hours Clear liquids for now Acute kidney injury Creatinine remains at 2.5 Continue IV fluids Monitor closely 07/25 (+) recurrence of hematemesis Hg decreased from 10 to 9 INR 1.6--> vit k given discussed with GI- monitor closely, including H&H, if with recurrence of GI bleed, will need repeat EGD continue Protonix drip, NPO monitor Plt, if <50k will need platelet transfusion 1 unit crea rising to 2.7 Nephro consulted Bilirubin increased from 2 ,currently 6 Ascites Fluid cytology: Nondiagnostic [employer] pending Hepatitis serologies ordered will likely need a liver biopsy monitor closely Admission and Anticipated Discharge Date Admission Date: July 20, 2025 Subjective seen resting in bed, comfortable had hematemesis again overnight ~1/2 cup, a few small episodes of "coughing up" blood today no chest pain, dyspnea, palpitations, dizziness no abdominal pain no other symptoms Review of Systems Review of Systems: all noted and negative except for above Physical Exam Physical Exam: General- oriented x 3, not in distress, speaks in sentences with no effort or accessory muscle use Eyes- anicteric Neck- no JVD Lungs- clear BS BL Heart- normal rate, regular rhythm; no murmurs Abdomen- normal bowel sounds, nondistended, soft, nontender Extremities- no pretibial edema, no calf tenderness Neuro- alert, oriented x 3; no gross focal neurologic deficits Skin- warm & dry Results & Data Results & Data Vital Signs (Past 12 Hours) Vital Signs Temp Pulse Resp BP Pulse Ox O2 Del Method 07/25/25 12:14 36.2 C L 105 H 22 116/71 90 Room Air 07/25/25 08:00 Room Air 07/25/25 07:13 36.3 C L 102 H 21 148/68 H 92 Room Air 07/25/25 03:03 36.4 C L 99 H 16 134/82 93 Room Air all noted and reviewed including below
[2025-07-26 07:50] LABS: Hematocrit (blood only) 25.5 % (42.0-52.0); Hemoglobin 8.5 g/dl (14.0-18.0); Mean Corpuscular Hemoglobin 30.4 pg (25.0-34.0); Mean Corpuscular Volume 91.1 fL (80.0-100.0); Platelet Count 49 K/uL (130-400); RDW Standard Deviation 66.6 fL (36.4-46.3); Red Blood Count 2.80 M/uL (4.70-6.10); White Blood Count 6.26 K/ul (4.8-10.8)
[2025-07-26 08:00] LABS: Alanine Aminotransferase 63.0 U/L (7-52); Albumin Globulin Ratio 0.7 (0.9-2); Albumin Level 2.0 gm/dl (3.4-5.0); Alkaline Phosphatase 146.0 U/L (34-104); Anion Gap 7.0 (3-11); Bilirubin,Total 8.3 mg/dl (0.2-1.0); Blood Urea Nitrogen 38.0 mg/dl (6-23); Calcium 8.1 mg/dl (8.6-10.3); Carbon Dioxide 22.0 mmol/L (21-32); Chloride 101.0 mmol/L (98-107); Creatinine Clr Calc Pharmacy 17.3 ml/min; Globulin 2.8 gm/dl (2.5-4.0); Glucose 101.0 mg/dl (70-99(Fasting)); Magnesium 1.7 mg/dl (1.7-2.4); Potassium 3.2 mmol/L (3.5-5.1); Sodium 130.0 mmol/L (136-145); Total Protein 4.8 gm/dl (6.0-8.3)
[2025-07-26 08:07] LABS: Anisocytosis Present; Immature Granulocytes # (auto) 0.04 K/uL (0.01-0.20); Immature Granulocytes % (auto) 0.6 %
[2025-07-26 09:51] LABS: Bilirubin,Total 9.2 mg/dl (0.2-1.0)
--- NOTE | 2025-07-26 09:54 | Nephrology Progress Note ---
Date of Service July 26, 2025 Assessment & Plan Admission and Anticipated Discharge Date Admission Date: July 20, 2025 Subjective Assessment & Plan (1) Renal insufficiency: on presentation his creatinine was 2.0 on July 20 and has gradually climbed to 2.84 today. This is likely multifactorial: He has had significant fluid shifts with the paracentesis; has also had significant hypotension for prolonged periods of time shortly after admission. No IV contrast. Also with severe /life-threatening liver disease. Baseline creatinine unknown; most recent outpatient value in Path system is from 2012 with a creatinine of 0.9. So Unknown baseline creatinine with progressive renal dysfunction since arrival over the past 6 days. Marked volume overload with marked ascites and edema mainly driven by Liver disease and electrolyte abnormalities with very low serum Albumin daily CMP. will repeat urinalysis with microscopy and urine electrolytes will do iv lasix 40 iv q8hr and iv albumin 25% q8hr. stop NS. he wants to go home today. Does not have insight into his situation !! (2) Disorder of fluid or electrolyte: has had significant electrolyte issues >> hyponatremia, hypomagnesemia, hypokalemia. mag is normal today. Na is dropping from vol overload with liver cirrhosis (3) Liver masses: work up in process; presumed malignant chronically elevated lactate since arrival in 2's and 3's; minimal AG; no e/o severe acid base perturbation; lactate likely from mass/inflammation (4) Acute blood loss anemia: per primary service and GI; serial hemoglobin; continue Protonix S--hardly any urine. 92% on RA labs getting worse slowly. Physical Exam Constitutional: + cachectic no acute distress Eyes: + anicteric ENMT: + dry oral mucous membranes Respiratory: normal respiratory effort + diminished lung sounds Cardiovascular: + tachycardic Extremities: 1+ edema Gastrointestinal (Abdomen): abdomen soft and + ascites; nontender Musculoskeletal: Extremities:1+ edema Skin: no rashes, warm and dry Neurologic: fluent speech, no tremor Psychiatric: Orientation: alert and oriented x 3 Results & Data Vital Signs (Past 12 Hours) Vital Signs Temp Pulse Resp BP Pulse Ox O2 Del Method 07/26/25 09:24 Room Air 07/26/25 07:35 36.4 C L 96 H 19 124/69 92 Room Air 07/25/25 23:15 36.4 C L 70 17 105/58 L 96 Room Air
--- NOTE | 2025-07-26 09:57 | History & Physical Bridge Note ---
Date of Service July 26, 2025 History & Physical Bridge Note I have examined the patient, reviewed the History & Physical and in the interval since the performance of the History & Physical I have noted the following changes of clinical significance: no changes noted Patient seen on rounds today. Hgb dropped from 9.3g/dl to 8.5g/dl. He continues to have melena x2/day. No abdominal pain or vomiting. He is NPO. Discussed case with Dr. Fontenot. We'll plan to proceed with EGD to ensure there's no further act ambreen bleeding. See orders. Supervising Physician Co-Signing Physician Notes I personally saw and examined the patient. I have reviewed the chart and agree with the documentation provided by the FISH PROCESSOR including discussion about the assessment, treatment and plan. Briefly, plan for an EGD given persistent melena. Agree with platelets today. Bilirubin has gone up but has passed CT did not show any biliary ductal dilation. I really suspect this is due to the mass inside the liver but it is very reasonable to get an ultrasound to check CBD
[2025-07-26 10:06] LABS: INR 1.6 (0.9-1.1); Prothrombin Time 16.2 Seconds (9.0-12.0)
[2025-07-26 10:09] LABS: Hep B Surface Ag with confirm Negative (Negative)
[2025-07-26 10:16] LABS: Hep C Ab Rflx HepCQuant RNA Prelim Positive (Negative)
[2025-07-26] MEDS: POTASSIUM CHLORIDE CRTAB 20 MEQ TABCR PO STA (11:01)
[2025-07-26] MEDS: MAGNESIUM SULFATE / D5W 1 GM/100 ML BAG IV ONE (11:01)
[2025-07-26] MEDS: FUROSEMIDE 40 MG/4 ML VIAL IV SCH (11:01)
[2025-07-26] MEDS: ALBUMIN 25% 25 GM/100 ML VIAL IV SCH (11:04)
[2025-07-26] MEDS ORDERED: SODIUM CHLORIDE 0.9% 100 ML IV PRN (11:18)
[2025-07-26] MEDS: PHYTONADIONE 2.5 MG in DEXTROSE 5% 50 ML IV ONE (12:12)
[2025-07-26] MEDS: ACETAMINOPHEN 325 MG TAB PO ONE (12:21)
[2025-07-26] MEDS: diphenhydrAMINE 50 MG/ML VIAL IV ONE (12:22)
--- NOTE | 2025-07-26 14:31 | History & Physical Bridge Note ---
Date of Service July 26, 2025 History & Physical Bridge Note I have examined the patient, reviewed the History & Physical and in the interval since the performance of the History & Physical I have noted the following changes of clinical significance: no changes noted Supervising Physician Co-Signing Physician Notes Patient underwent EGD. He was found to have no varices. He had a ulcerative esophagitis in the midesophagus with a large clot in the distal GE junction above an ulcer. The clot was guillotine off and underlying a vessel was noted. sing APC, the vessel was completely cauterized. A decision was made not to use a clip as the area around that ulcer was very friable and no real good place to place a clip (i.e. healthy tissue). The patient had a small hiatal hernia with mild portal hypertensive gastropathy. No active bleeding at the end of the procedure. The patient needs a PPI drip with n.p.o. for now
--- NOTE | 2025-07-26 14:36 | GI REPORT ---
[facility] Patient: JAIDA WILSON : 1960 Sex at : Male Age: 64 Years Procedure: Upper GI endoscopy Date: 07/26/2025 Attending Physician: Sebastián Fontenot MD Referring MD: Ashish Soto Indications: - Melena - Acute post hemorrhagic anemia Medications: - Monitored Anesthesia Care Complications: - No immediate complications. Estimated Blood Loss: - Estimated blood loss: None. Procedure: - Prior to the procedure, a History and Physical was performed, and patient medications and allergies were reviewed. The patient's tolerance of previous anesthesia was also reviewed. The risks and benefits of the procedure and the sedation options and risks were discussed with the patient. All questions were answered, and informed consent was obtained. Prior Anticoagulants: The patient has taken no anticoagulant or antiplatelet agents. ASA Grade Assessment: IV - A patient with severe systemic disease that is a constant threat to life. After reviewing the risks and benefits, the patient was deemed in satisfactory condition to undergo the procedure. - The egd scope was introduced through the mouth and advanced to the third part of the duodenum. - The upper GI endoscopy was accomplished without difficulty. - The patient tolerated the procedure well. Findings: - A small hiatal hernia was present. - Few linear esophageal ulcers with no stigmata of recent bleeding were found in the lower third of the esophagus. The largest lesion was less than one mm in largest dimension. - One cratered esophageal ulcer oozing blood was found at the gastroesophageal junction. The lesion was less than one mm in largest dimension. Coagulation for hemostasis using argon plasma was successful. - Mild portal hypertensive gastropathy was found in the entire examined stomach. - The examined duodenum was normal. Impression: - Small hiatal hernia. - Esophageal ulcers with no stigmata of recent bleeding. - Esophageal ulcer oozing blood. Treated with argon plasma coagulation (APC). - Portal hypertensive gastropathy. - Normal examined duodenum. - No specimens collected. Recommendation: - Discharge patient to home (ambulatory). - Resume previous diet. - Continue present medications. - Await pathology results. - Return to primary care physician as previously scheduled. - Patient has a contact number available for emergencies. The signs and symptoms of potential delayed complications were discussed with the patient. Return to normal activities tomorrow. Written discharge instructions were provided to the patient. - N.p.o., PPI drip, keep platelets above 35. Procedure Code(s): - 29977, Esophagogastroduodenoscopy, flexible, transoral; with control of bleeding, any method Diagnosis Code(s): - K92.1, Melena (includes Hematochezia) - D62, Acute posthemorrhagic anemia - K44.9, Diaphragmatic hernia without obstruction or gangrene - K22.11, Ulcer of esophagus with bleeding - K76.6, Portal hypertension - K31.89, Other diseases of stomach and duodenum CPT(R) - 202 copyright [employer]. All Rights Reserved. The CPT codes, CCI edits and ICD codes generated are intended as suggestions and were generated based on input data. These codes are preliminary and upon manufacturing accountant review may be revised to meet current compliance and payer requirements. The provider is responsible for the final determination of appropriate codes, and modifiers. Sebastián Fontenot MD This document has been electronically signed. Note Initiated:07/26/2025 Note Completed:07/26/2025 2:35 PM [id number]
[2025-07-26] MEDS: POTASSIUM CHLORIDE CRTAB 20 MEQ TABCR PO SCH (15:26)
--- NOTE | 2025-07-26 15:47 | Anesthesiology Progress Note ---
Date of Service July 26, 2025 Anesthesia Post Procedure Vital Signs Vital Signs: Temp Pulse Pulse Resp BP BP Pulse Ox 07/26/25 15:04 97 H 16 103/63 07/26/25 14:49 78 16 89/51 L 92 07/26/25 14:34 104 H 16 108/70 90 07/26/25 13:38 36.2 C L 95 H 16 128/76 92 07/26/25 12:56 36.3 C L 95 H 16 120/76 94 07/26/25 12:39 36.2 C L 97 H 16 108/70 95 07/26/25 09:24 07/26/25 07:35 36.4 C L 96 H 19 124/69 92 07/25/25 23:15 36.4 C L 70 17 105/58 L 96 07/25/25 21:02 07/25/25 19:31 36.4 C L 97 H 17 113/64 92 07/25/25 16:04 36.3 C L 98 H 22 115/74 92 O2 Del Method 07/26/25 15:04 07/26/25 14:49 Room Air 07/26/25 14:34 Room Air 07/26/25 13:38 Room Air 07/26/25 12:56 07/26/25 12:39 07/26/25 09:24 Room Air 07/26/25 07:35 Room Air 07/25/25 23:15 Room Air 07/25/25 21:02 Room Air 07/25/25 19:31 Room Air 07/25/25 16:04 Room Air Transfer of Care Handoff Completed per policy Notes Mental Status: alert / awake / arousable and participated in evaluation Nausea / Vomiting: adequately controlled Pain: adequately controlled Airway Patency, RR, SpO2: stable & adequate BP & HR: stable & adequate Hydration State: stable & adequate Anesthetic Complications: no major complications apparent and Pt Satisfied with anesthetic care
[2025-07-26] MEDS: POTASSIUM CHLORIDE 20 MEQ/15 ML UDC PO SCH (15:53)
--- NOTE | 2025-07-26 16:06 | Hospitalist Progress Note ---
Date of Service July 26, 2025 Assessment & Plan (1) Liver masses: (2) Ascites of liver: (3) Hematemesis: (4) Acute blood loss anemia: (5) Acute kidney injury: (6) Severe protein-calorie malnutrition: Plan: Patient 64-year-old gentleman presents with pruritus, weight loss and weakness. Evaluation shows liver masses and ascites highly concerning for liver cancer. Liver Mass Ascites Thrombocytopenia Elevated INR s/p IR paracentesis with cytology studies 07/21 3 L taken off Bilirubin increased from 2 ,currently 9 LDH normal, haptoglobin pending Ascites Fluid cytology: Nondiagnostic AFP pending Hepatitis serologies ordered will need to discuss liver biopsy with IR team, possible Thurs if Hg stable Upper GI Bleed, Esophageal Ulcers over the weekend patient developed hematemesis s/p 2 units pRBC s/p EGD: (+) esophagitis with bleeding vessel, s/p cauterization unfortunately, hematemesis persisted s/p repeat EGD today: (+) oozing vessel, s/p APC - Small hiatal hernia. - Esophageal ulcers with no stigmata of recent bleeding. - Esophageal ulcer oozing blood. Treated with argon plasma coagulation (APC). - Portal hypertensive gastropathy. - Normal examined duodenum. 1 unit plateletpharesis for plt 49k Vit K IV given for INR 1.5 continue NPO, clears tomorrow continue Protonix drip, Ceftri IV repeat CBC tomorrow Acute kidney injury Creatinine trending up, from 1.9 now at 2.5 likely from fluid shift s/p paracentesis, acute blood loss anemia Nephro consulted currently on Lasix + Albumin Heart Murmur echo: mild to moderate mitral regurgitation Acute 10 Fracture: no back pain DVT prophylaxis SCDs Disposition d/c home when medically stable Admission and Anticipated Discharge Date Admission Date: July 20, 2025 Subjective seen resting in bed, comfortable states he feels ok, just tired no abdominal pain, nausea, fever no shortness of breath no urinary symptoms Review of Systems Review of Systems: all noted and negative except for above Physical Exam Physical Exam: General- oriented x 3, not in distress, speaks in sentences with no effort or accessory muscle use Eyes- anicteric Neck- no JVD Lungs- clear breath sounds bilaterally Heart- normal rate, regular rhythm; no murmurs Abdomen- normal bowel sounds, nondistended, soft, nontender Extremities- no pretibial edema, no calf tenderness Neuro- alert, oriented x 3; no gross focal neurologic deficits Skin- warm & dry Results & Data Results & Data Vital Signs (Past 12 Hours) Vital Signs Temp Pulse Pulse Resp BP BP Pulse Ox 07/26/25 15:04 97 H 16 103/63 07/26/25 14:49 78 16 89/51 L 92 07/26/25 14:34 104 H 16 108/70 90 07/26/25 13:38 36.2 C L 95 H 16 128/76 92 07/26/25 12:56 36.3 C L 95 H 16 120/76 94 07/26/25 12:39 36.2 C L 97 H 16 108/70 95 07/26/25 09:24 07/26/25 07:35 36.4 C L 96 H 19 124/69 92 O2 Del Method 07/26/25 15:04 07/26/25 14:49 Room Air 07/26/25 14:34 Room Air 07/26/25 13:38 Room Air 07/26/25 12:56 07/26/25 12:39 07/26/25 09:24 Room Air 07/26/25 07:35 Room Air all noted and reviewed including below
[2025-07-26] MEDS: LIDOCAINE 2% 2 ML VIAL/AMP(20MG/ML) INFIL ONE ×2 (19:21)
[2025-07-26] MEDS: ePHEDrine sulfate 50 MG/5 ML SYR ONE (19:21)
[2025-07-26] MEDS: KETAMINE HCL 10MG/ML SYR ONE (19:21)
[2025-07-26] MEDS: PHENYLEPHRINE 100MCG/ML 5ML SYR ONE (19:22)
[2025-07-26] MEDS: PROPOFOL IV EMULSION 10 MG/ML 20 ML VIAL IV ONE (19:23)
[2025-07-27 06:24] LABS: Hematocrit (blood only) 21.0 % (42.0-52.0); Hemoglobin 7.1 g/dl (14.0-18.0); Mean Corpuscular Hemoglobin 30.3 pg (25.0-34.0); Mean Corpuscular Volume 89.7 fL (80.0-100.0); Platelet Count 38 K/uL (130-400); RDW Standard Deviation 64.3 fL (36.4-46.3); Red Blood Count 2.34 M/uL (4.70-6.10); White Blood Count 5.13 K/ul (4.8-10.8)
[2025-07-27 06:35] LABS: INR 1.9 (0.9-1.1); Prothrombin Time 19.6 Seconds (9.0-12.0)
[2025-07-27 06:39] LABS: Alanine Aminotransferase 39.0 U/L (7-52); Albumin Globulin Ratio 1.3 (0.9-2); Albumin Level 2.8 gm/dl (3.4-5.0); Alkaline Phosphatase 106.0 U/L (34-104); Anion Gap 10.0 (3-11); Bilirubin,Total 7.4 mg/dl (0.2-1.0); Blood Urea Nitrogen 40.0 mg/dl (6-23); Calcium 8.6 mg/dl (8.6-10.3); Carbon Dioxide 20.0 mmol/L (21-32); Chloride 101.0 mmol/L (98-107); Creatinine Clr Calc Pharmacy 19.1 ml/min; Globulin 2.1 gm/dl (2.5-4.0); Glucose 95.0 mg/dl (70-99(Fasting)); Magnesium 1.8 mg/dl (1.7-2.4); Potassium 3.3 mmol/L (3.5-5.1); Sodium 131.0 mmol/L (136-145); Total Protein 4.9 gm/dl (6.0-8.3)
[2025-07-27 06:41] LABS: Anisocytosis Present; Immature Granulocytes # (auto) 0.03 K/uL (0.01-0.20); Immature Granulocytes % (auto) 0.6 %; Target Cells 1+
--- NOTE | 2025-07-27 08:59 | Nephrology Progress Note ---
Date of Service July 27, 2025 Assessment & Plan (1) Renal insufficiency: Plan: on presentation his creatinine was 2.0 on July 20 and has gradually climbed to 3.2 today from 2.8 yesterday. This is likely multifactorial: He has had significant fluid shifts with the paracentesis; has also had significant hypotension for prolonged periods of time shortly after admission; abrupt jump today likely d/t lasix now held but would continue albumin. No IV contrast. Also with severe /life-threatening liver disease. Baseline creatinine unknown; most recent outpatient value in [facility] system is from 2012 with a creatinine of 0.9. Unknown baseline creatinine with progressive renal dysfunction since arrival over the past 5 days. Marked volume overload and electrolyte abnormalities -daily basic metabolic panel -lasix held -K supplements upped to qid -2 day course of albumin IV q8hr (2) Disorder of fluid or electrolyte: Plan: has had significant electrolyte issues >> hyponatremia, hypomagnesemia, hypokalemia. -continue to check these daily and replete magnesium and potassium as needed >> K repleted; mag ok today - hyponatremia due to volume overload with liver dysfunction; would not work actively to treat just now but would monitor; specifically no fluid limit at this time since he is on a liquid diet to the extent he is on any diet at all because of upper GI bleeding (3) Liver masses: Plan: work up in process; presumed malignant chronically elevated lactate since arrival in 2's and 3's; minimal AG; no e/o severe acid base perturbation; lactate likely from mass/inflammation (4) Acute blood loss anemia: Plan: hgb 7.1 today, 1.4 mg/dL drop ON; per primary service and GI; serial hemoglobin; continue Protonix Admission and Anticipated Discharge Date Admission Date: July 20, 2025 Subjective EGD yesterday-esophageal ulcer treated w/ APC; started on lasix/albumin yesterday and creatinine markedly increased; states he's for liver bx in am; ambulating in bathroom; struggling to process new /severe debility; mild sob; some edema Review of Systems 2 Review of Systems: All systems reviewed & are unremarkable except as noted in Subjective Physical Exam 2 Constitutional: well developed, + cachectic and cooperative; no acute distress Eyes: EOM intact bilaterally; sclerae not anicteric ENMT: Mouth: + dry oral mucous membranes Respiratory: normal respiratory effort Auscultation: + diminished lung sounds Cardiovascular: Rate/Rhythm: regular rate and regular rhythm Extremities: + edema (2-3+ BLE) Gastrointestinal (Abdomen): Inspection/Auscultation: + abdomen distended and normal bowel sounds Percussion/Palpation: abdomen soft and + ascites; abdomen nontender Musculoskeletal: Extremities: strength 5/5 throughout Skin: no rashes, warm and dry Psychiatric: Orientation: alert and oriented x 3 Results & Data Vital Signs (Past 12 Hours) Vital Signs Temp Pulse Pulse Resp BP Pulse Ox O2 Del Method 07/27/25 07:40 36.2 C L 89 16 96/57 L 93 Room Air 07/27/25 03:48 36.3 C L 85 16 99/57 L 90 Room Air 07/27/25 00:00 91 H 07/26/25 22:58 36.2 C L 89 16 113/63 91 Room Air Laboratory Results 07/27/25 05:42 07/27/25 05:42
[2025-07-27] MEDS: POTASSIUM CHLORIDE 20 MEQ/15 ML UDC PO SCH (09:19)
--- NOTE | 2025-07-27 12:06 | Gastroenterology Progress Note ---
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 (1) UGIB/Hematemesis. - He underwent EGD 07/23/25 revealing LA grade D esophagitis with hematin in mid/distal esophagus which is suspected source of bleeding. No evidence of portal hypertension on imaging or EGD. No varices noted. He remains on Pantoprazole drip. Octreotide stopped. - Repeat EGD with APC treatment 07/26/25 - Hgb dropped form 8.5g/dl to 7.1g/dl - Reviewed with attending GI. Recommend ongoing supportive therapy with PPI and transfusion as needed per primary team. - Clinically had 1 bowel movement of melena this AM. - Remain on liquid diet for now. (2) Elevated LFTs/Liver Mass - CT Abd/pelvis - Posterior right hepatic lobe lesion measuring 6.7 x 5.4 cm, is internally heterogeneous with scattered low-density areas. - Alpha fetoprotein pending. - Paracentesis non-diagnostic. - AFP 2757 - T-Bili 7.4 (down from 9.2), AST 47, ALT 39, Alk Phos 106 - INR 1.9 - Creatinine 3.17 - Check hepatitis serologies ordered. Hep C preliminary is positive with RNA pending. Hep Bs Ab negative. Hep A and Hep B - Would recommend further imaging to better characterize lesion. Ideally with Abdominal MRI with liver protocol (which may not be available inpatient) vs Triphasic CT Liver scan. Admission and Anticipated Discharge Date Admission Date: July 20, 2025 Supervising Physician Co-Signing Physician Notes I personally saw and examined the patient. I have reviewed the chart and agree with the documentation provided by the DIRECTOR CONSUMER including discussion about the assessment, treatment and plan. Briefly, had 1 bout of melena which I am hoping is old blood as he said it was decreased in size hemodynamically stable. He did have a clot at the GE junction ulcer which we APC'd. There is not enough healthy tissue around to put a clip there. In the meantime his alpha- fetoprotein is 2700 and has hepatitis C is preliminarily positive these findings are all suggestive of cirrhosis with HCC that it is quite large and may be multifocal. He will need a MRI protocol for liver lesion evaluation. He will need oncology consult. Keep him on liquids today. 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 (1) UGIB/Hematemesis. - He underwent EGD 07/23/25 revealing LA grade D esophagitis with hematin in mid/distal esophagus which is suspected source of bleeding. No evidence of portal hypertension on imaging or EGD. No varices noted. He remains on Pantoprazole drip. Octreotide stopped. - Despite this had hematemesis over the weekend. - Repeat EGD oozing at esophagus which was treated with APC 07/26/25. - He reports today that he had small amount of loose dark stool this AM. - Denies abdominal pain, N/V, hematochezia. - Hgb dropped from 8.5g/dl to 7.1g/dl. (2) Elevated LFTs/Liver Mass - T-Bili 6.2, AST 74, ALT 86, Alk Phos 145, Albumin 2.2 - CT Abd/pelvis - Posterior right hepatic lobe lesion measuring 6.7 x 5.4 cm, is internally heterogeneous with scattered low-density areas. - Alpha fetoprotein 2757 Pertinent Diagnostics Hgb 6.0 07/23 => 10.4 07/23 => 9.7 07/24 => 9.0 07/25. => 8.5 07/26/25 => 7.1g/dl BUN 40, Cr 2.75, Na 132, Cl 101, CO2 23, Na 133, K 3.6 T-Bili 7.4 (down from 9.2), AST 47, ALT 39, Alk Phos 106 CT abd/pelvis FINDINGS: Lower chest: No consolidation. No pleural effusion or pneumothorax. Liver: Posterior right hepatic lobe lesion measuring 6.7 x 5.4 cm, is internally heterogeneous with scattered low-density areas. Anterior left hepatic lobe lesion measuring 3.3 x 1.8 cm is hyperattenuating. Gallbladder: No gallstones. No evidence of acute cholecystitis. Spleen: Normal size. Pancreas: No suspicious pancreatic lesions. The pancreatic duct is not dilated. Adrenal glands: No adrenal nodules. Kidneys: No hydronephrosis or obstructing renal stones. Bladder / Pelvic organs: Unremarkable. Bowel: No bowel obstruction. No abnormal bowel wall thickening. The appendix is unremarkable. There is a moderate esophageal hiatal hernia. Sigmoid diverticulosis without diverticulitis. Lymph nodes: No retroperitoneal, mesenteric, or pelvic lymphadenopathy. Peritoneum / Retroperitoneum: There is a large volume of ascites. Vessels: No infrarenal aortic aneurysm. Heavy aortoiliac calcification. Bones and soft tissues: No suspicious lesion in the bones. IMPRESSION: There is a large heterogeneous mass in the posterior right lobe of the liver, which is nonspecific, for benign and malignant etiologies, however the findings are concerning for neoplasm. An abscess is in the differential, however seems less likely. A higher attenuating nodular area in the anterior left lobe, may also represent a mass. Large volume ascites. Electronically signed by Ashwin Vivar 07-20-2025 6:05 PM EGD Impression: - LA Grade D reflux esophagitis with no bleeding. - there was a visible vessel close to GE junction, which could represent the source of recent coffee-ground emesis, this was adequately cauterized with BiCap with complete hemostasis . No active bleeding was seen. - Large, 5 cm hiatal hernia. - Normal second portion of the duodenum. - No portal hypertension gastropathy, esophageal or gastric varices seen - No specimens collected. Recommendation: - Please continue PPI gtt for another 24-20 48 hrs. ok to stop octreotide. ok to resume clear liquids, monitor H/Hand signs of GI bleeding Review of Systems Review of Systems: See HPI Physical Exam Physical Exam: Constitutional: NAD. Alert. Answering questions appropriately. Respiratory: Breathing is even, non-labored. Lungs chaudhary are clear to auscultation anteriorly. Cardiovascular: Regular Rate and Rhythm, no murmurs, rubs or gallops appreciated. Gastrointestinal (Abdomen): Normoactive bowel sounds x4, soft, non-distended, non-tender. Musculoskeletal: Lying in bed comfortably. No peripheral edema. Results & Data Results & Data Vital Signs (Past 12 Hours) Vital Signs Temp Pulse Resp BP Pulse Ox O2 Del Method 07/27/25 11:41 97.7 F 83 17 104/65 91 Room Air 07/27/25 08:00 Room Air 07/27/25 07:40 97.2 F L 89 16 96/57 L 93 Room Air 07/27/25 03:48 97.3 F L 85 16 99/57 L 90 Room Air PG Care Time/CCT Total # of Minutes Spent Total Time Spent with Patient: Total time spent is greater than 50% in coordination of care (as documented) at patient's floor/unit and/or counseling patient: Coding Level of Care Code 37810 SUB INP/OBS CARE 2/35MIN Diagnoses Acute blood loss anemia D62 Liver masses R16.0 Hematemesis K92.0
[2025-07-27 12:57] LABS: Hepatitis A Antibody IgM NON-REACTIVE (NON-REACTIVE); Hepatitis B Core Antibody IgM NON-REACTIVE (NON-REACTIVE)
[2025-07-27] MEDS ORDERED: ONDANSETRON INJ 2 MG/ML 2 ML VIAL IV PRN (15:21)
--- NOTE | 2025-07-27 15:31 | Hospitalist Progress Note ---
Date of Service July 27, 2025 Assessment & Plan (1) Liver masses: (2) Ascites of liver: (3) Electrolyte abnormality: (4) Acute kidney injury: (5) Severe protein-calorie malnutrition: (6) Pruritus due to systemic disorder: (7) Esophagitis determined by endoscopy: (8) Esophageal ulcer with bleeding: (9) Acute on chronic blood loss anemia: (10) Thrombocytopenia: (11) Coagulopathy: Plan Patient 64-year-old gentleman with high suspicion for hepatocellular carcinoma w ith elevated alpha-fetoprotein, liver masses, ascites, potentially due to hepatitis C Communication with interventional radiology team, unable to do biopsy here due to coagulopathy and thrombocytopenia. Recommend transferring to a center that could do embolization if needed Advance to full liquid diet, transition to oral PPI Continue to monitor hemoglobin, transfuse as needed Diuretic and electrolyte as directed by nephrology, renal dysfunction is progressing. Raises concern for possible hepatorenal syndrome Conversation with the patient explained to him that I have a high suspicion that this is liver cancer. He deftly wants to proceed with biopsy and definitive diagnosis and evaluating his options. We did briefly discuss comfort measures, however he wants to proceed with further evaluation at this time. Admission and Anticipated Discharge Date Admission Date: July 20, 2025 Subjective Patient is tolerating liquids. Requesting a shower. Definitely would like definitive diagnosis of the liver mass and would like to have a biopsy. Physical Exam Physical Exam: Constitutional: Alert, frail, cachectic HEENT: Mucous membranes moist. Lungs: Decreased breath sounds CV: S1-S2, regular Abdomen: Soft, nontender, nondistended, enlarged liver Extremities: Ankle edema Neuro: No focal deficits, generally weak Psych: Cooperative, normal mood Results & Data Results & Data Vital Signs (Past 12 Hours) Vital Signs Temp Pulse Resp BP Pulse Ox O2 Del Method 07/27/25 11:41 36.5 C 83 17 104/65 91 Room Air 07/27/25 08:00 Room Air 07/27/25 07:40 36.2 C L 89 16 96/57 L 93 Room Air 07/27/25 03:48 36.3 C L 85 16 99/57 L 90 Room Air Diagnostic Findings Reviewed imaging, laboratory and diagnostic studies. Pertinent findings as below. Hemoglobin 7.1, trending down slightly Platelets of 38 INR 1.9 Potassium 3.3 Creatinine 3.1, increasing Alpha-fetoprotein 2757 Hepatitis C antibody preliminary positive, RNA PCR pending
[2025-07-27 23:12] LABS: Appearance Urine Clear (Clear); Glucose Urine UA Negative (Negative)
[2025-07-28 09:05] LABS: Hematocrit (blood only) 23.1 % (42.0-52.0); Hemoglobin 7.7 g/dl (14.0-18.0); Mean Corpuscular Hemoglobin 29.7 pg (25.0-34.0); Mean Corpuscular Volume 89.2 fL (80.0-100.0); Platelet Count 46 K/uL (130-400); RDW Standard Deviation 64.9 fL (36.4-46.3); Red Blood Count 2.59 M/uL (4.70-6.10); White Blood Count 5.27 K/ul (4.8-10.8)
[2025-07-28 09:20] LABS: Anion Gap 13.0 (3-11); Blood Urea Nitrogen 43.0 mg/dl (6-23); Calcium 9.2 mg/dl (8.6-10.3); Carbon Dioxide 21.0 mmol/L (21-32); Chloride 101.0 mmol/L (98-107); Creatinine Clr Calc Pharmacy 16.8 ml/min; Glucose 99.0 mg/dl (70-99(Fasting)); Potassium 2.9 mmol/L (3.5-5.1); Sodium 135.0 mmol/L (136-145)
[2025-07-28] MEDS: POTASSIUM CHLORIDE / WTR 10 MEQ/100 ML PLCT IV SCH (10:20)
[2025-07-28 10:47] LABS: Hepatitis C Vira RNA (Log) PCR 6.76 Log IU/mL (NOT DETECTED)
--- NOTE | 2025-07-28 11:08 | Nephrology Progress Note ---
Date of Service July 28, 2025 Assessment & Plan (1) Renal insufficiency: Plan: on presentation his creatinine was 2.0 on July 20 and has gradually climbed to 3.6 today from 3.2 yesterday. This is likely multifactorial: He has had significant fluid shifts with the paracentesis; has also had significant hypotension for prolonged periods of time shortly after admission; abrupt jump today likely d/t lasix now held but last dose yesterday AM; would continue albumin. No IV contrast for CT scans but MRI w/ group 2 contrast agent ok after extended discussion today (40 min) w/ pt, , Dr Clay of risks/benefits, indications for/ alternatives to IV contrast >> MRI may clinch diagnosis on liver mass and completely change his care plan. Also with severe /life- threatening liver disease. Baseline creatinine unknown; most recent outpatient value in [facility] system is from 2012 with a creatinine of 0.9. Likeliest is ischemic ATN related to obligate diuretics in setting of severe intravascular volume depletion; challenging situation; may need to consider empiric therapy for HRS Unknown baseline creatinine with progressive renal dysfunction since arrival over the past 5 days. Marked volume overload and electrolyte abnormalities -daily basic metabolic panel -lasix held -K supplements upped to qid -2 day course of albumin IV q8hr we had extended conversation today w/ much input from Dr Clay about -need for MRI w/ con despite risks >> he and give verbal consent for this test after review of risks/potential benefits/alternatives -current renal status and renal status at admission >> severely diminished and rapidly worsening >> concern he may need dialysis in next 24-72 hrs; introduced idea of dialysis to pt and ; also explained that as liver pt dialysis would be difficult d/t bleeding and hypotension risks and that if he is not a candidate for therapy for liver CA or/and liver txplt he may not be a dialysis candidate -likelihood that in next several days very difficult goals of care and possibly end of life discussions will be coming Care coordinated extensively/repeatedly w/ Dr Clay via phone, TText and in person (2) Disorder of fluid or electrolyte: Plan: has had significant electrolyte issues >> hyponatremia, hypomagnesemia, hypokalemia. -continue to check these daily and replete magnesium and potassium as needed >> K repleted by vein currently and po qid (latter on hold for MRI) > K 2.9 today; mag ok today - hyponatremia due to volume overload with liver dysfunction; would not work actively to treat just now but would monitor; specifically no fluid limit at this time since he is on a liquid diet to the extent he is on any diet at all because of upper GI bleeding (3) Liver masses: Plan: work up in process; presumed malignant. w/ elevated AFP, mass > 6 cm and waiting on MRI << he may be in need of urgent transfer to [facility] [place] for therapy for HCC or/and including possible liver txplt candidacy chronically elevated lactate since arrival in 2's and 3's; minimal AG; no e/o severe acid base perturbation; lactate likely from mass/inflammation (4) Acute blood loss anemia: Plan: hgb 7.7 today, improved ON; per primary service and GI; serial hemoglobin; continue Protonix; has had 2 units pRBC so far on 07/23 Admission and Anticipated Discharge Date Admission Date: July 20, 2025 Subjective bx not an option at [facility] d/t pt complexity/low plts/bleed risk; after d/w [facility] hepatology MRI w/ con recommended for definitive dx (bx not needed in this setting) however pt w/ worse renal function. pt notes more LE edema (not bothersome) and more sob at rest and exertional; some rhinorrha, productive cough Review of Systems 2 Review of Systems: All systems reviewed & are unremarkable except as noted in Subjective Physical Exam 2 Constitutional: well developed (more winded, more restless today), + cachectic and cooperative; no acute distress Eyes: EOM intact bilaterally; sclerae not anicteric ENMT: Mouth: + dry oral mucous membranes Respiratory: + labored breathing (slight), + cough (p roductive green phlegm), able to speak in complete sentences and + abnormal respiratory pattern A uscultation: + diminished lung sounds Cardiovascular: Rate/Rhythm: regular rhythm and + tachycardic Extremities: + edema (3+ BLE) Gastrointestinal (Abdomen): Inspection/Auscultation: + abdomen distended (? more today) and normal bowel sounds Percussion/Palpation: abdomen soft and + ascites; abdomen nontender Musculoskeletal: Extremities: strength 5/5 throughout Skin: no rashes, warm and dry Psychiatric: Orientation: alert and oriented x 3 Results & Data Vital Signs (Past 12 Hours) Vital Signs Temp Pulse Resp BP Pulse Ox O2 Del Method 07/28/25 07:37 36.5 C 91 H 17 117/64 92 Room Air Laboratory Results 07/28/25 08:45 07/28/25 08:45
--- NOTE | 2025-07-28 11:30 | Gastroenterology Progress Note ---
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 (1) UGIB/Hematemesis. - He underwent EGD 07/23/25 revealing LA grade D esophagitis with hematin in mid/distal esophagus which is suspected source of bleeding. No evidence of portal hypertension on imaging or EGD. No varices noted. He remains on Pantoprazole drip. Octreotide stopped. - Repeat EGD with APC treatment 07/26/25 - Hgb now up from 7.1g/dl to 7.7g/dl. - Reviewed with attending GI. Recommend ongoing supportive therapy with PPI and transfusion as needed per primary team. - Clinically had 1 bowel movement of melena this AM. - Remain on liquid diet for now. (2) Elevated LFTs/Liver Mass - CT Abd/pelvis - Posterior right hepatic lobe lesion measuring 6.7 x 5.4 cm, is internally heterogeneous with scattered low-density areas. - Alpha fetoprotein pending. - Paracentesis non-diagnostic. - AFP 2757, T-Bili 7.4 (down from 9.2), AST 47, ALT 39, Alk Phos 106, INR 1.9 - Creatinine 3.6 - MELD 33. - Check hepatitis serologies ordered. Hep C preliminary is positive with RNA pending. Hep Bs Ab negative. Hep A and Hep B - Poor candidate for chemoembolization based off Bilirubin and MELD scores. Plan to follow up with MRI for further characterization of lesion. Admission and Anticipated Discharge Date Admission Date: July 20, 2025 Supervising Physician Co-Signing Physician Notes I personally saw and examined the patient. I have reviewed the chart and agree with the documentation provided by the POWDER WORKER including discussion about the assessment, treatment and plan. Briefly, he has a creatinine now that is up to 3.6. We should check a urine sodium continue his albumin. I do not see any downside to starting empiric octreotide and midodrine. This is multifactorial and likely from ischemic ATN from his persistent bleeding, however HRS cannot be ruled out. He appears to have multifocal HCC with a alpha-fetoprotein of 2757 and 6.7 x 5 cm mass outside of UNOS criteria he did not stop drinking till 2 months ago and has never been to rehab not an ideal liver transplant candidate. His bleeding appears to have stopped. Hep C RNA is pending. 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 (1) UGIB/Hematemesis. - He underwent EGD 07/23/25 revealing LA grade D esophagitis with hematin in mid/distal esophagus which is suspected source of bleeding. No evidence of portal hypertension on imaging or EGD. No varices noted. He remains on Pantoprazole drip. Octreotide stopped. - Despite this had hematemesis over the weekend. - Repeat EGD oozing at esophagus which was treated with APC 07/26/25. - He reports today that he had small amount of loose dark stool this AM. - Denies abdominal pain, N/V, hematochezia. - Hgb up from 7.1g/dl. 7.7g/dl (2) Elevated LFTs/Liver Mass - T-Bili 6.2, AST 74, ALT 86, Alk Phos 145, Albumin 2.2 - CT Abd/pelvis - Posterior right hepatic lobe lesion measuring 6.7 x 5.4 cm, is internally heterogeneous with scattered low-density areas. - Alpha fetoprotein 2757 - Diagnosis is multi-focal HCC until proven otherwise. Planning for MRI for further evaluation. Pertinent Diagnostics Hgb 6.0 07/23 => 10.4 07/23 => 9.7 07/24 => 9.0 07/25. => 8.5 07/26/25 => 7.1g/dl BUN 40, Cr 2.75, Na 132, Cl 101, CO2 23, Na 133, K 3.6 T-Bili 7.4 (down from 9.2), AST 47, ALT 39, Alk Phos 106 CT abd/pelvis FINDINGS: Lower chest: No consolidation. No pleural effusion or pneumothorax. Liver: Posterior right hepatic lobe lesion measuring 6.7 x 5.4 cm, is internally heterogeneous with scattered low-density areas. Anterior left hepatic lobe lesion measuring 3.3 x 1.8 cm is hyperattenuating. Gallbladder: No gallstones. No evidence of acute cholecystitis. Spleen: Normal size. Pancreas: No suspicious pancreatic lesions. The pancreatic duct is not dilated. Adrenal glands: No adrenal nodules. Kidneys: No hydronephrosis or obstructing renal stones. Bladder / Pelvic organs: Unremarkable. Bowel: No bowel obstruction. No abnormal bowel wall thickening. The appendix is unremarkable. There is a moderate esophageal hiatal hernia. Sigmoid diverticulosis without diverticulitis. Lymph nodes: No retroperitoneal, mesenteric, or pelvic lymphadenopathy. Peritoneum / Retroperitoneum: There is a large volume of ascites. Vessels: No infrarenal aortic aneurysm. Heavy aortoiliac calcification. Bones and soft tissues: No suspicious lesion in the bones. IMPRESSION: There is a large heterogeneous mass in the posterior right lobe of the liver, which is nonspecific, for benign and malignant etiologies, however the findings are concerning for neoplasm. An abscess is in the differential, however seems less likely. A higher attenuating nodular area in the anterior left lobe, may also represent a mass. Large volume ascites. Electronically signed by Ashwin Vivar 07-20-2025 6:05 PM EGD Impression: - LA Grade D reflux esophagitis with no bleeding. - there was a visible vessel close to GE junction, which could represent the source of recent coffee-ground emesis, this was adequately cauterized with BiCap with complete hemostasis . No active bleeding was seen. - Large, 5 cm hiatal hernia. - Normal second portion of the duodenum. - No portal hypertension gastropathy, esophageal or gastric varices seen - No specimens collected. Recommendation: - Please continue PPI gtt for another 24-20 48 hrs. ok to stop octreotide. ok to resume clear liquids, monitor H/Hand signs of GI bleeding Review of Systems Review of Systems: See HPI Physical Exam Physical Exam: Constitutional: NAD. Alert. Answering questions appropriately. Respiratory: Breathing is even, non-labored. Lungs chaudhary are clear to auscultation anteriorly. Cardiovascular: Regular Rate and Rhythm, no murmurs, rubs or gallops appreciated. Gastrointestinal (Abdomen): Normoactive bowel sounds x4, soft, non-distended, non-tender. Musculoskeletal: Lying in bed comfortably. No peripheral edema. Results & Data Results & Data Vital Signs (Past 12 Hours) Vital Signs Temp Pulse Resp BP Pulse Ox O2 Del Method 07/28/25 08:00 Room Air 07/28/25 07:37 97.7 F 91 H 17 117/64 92 Room Air PG Care Time/CCT Total # of Minutes Spent Total Time Spent with Patient: Total time spent is greater than 50% in coordination of care (as documented) at patient's floor/unit and/or counseling patient: Coding Level of Care Code 09288 SUB INP/OBS CARE 3/50MIN Diagnoses Acute blood loss anemia D62 Liver masses R16.0 Hematemesis K92.0
[2025-07-28] MEDS: POTASSIUM CHLORIDE 20 MEQ/15 ML UDC PO STA (13:23)
[2025-07-28] MEDS: FUROSEMIDE 40 MG/4 ML VIAL IV STA ×2 (13:23→20:28)
[2025-07-28] MEDS: GADOXETATE DISODIUM IV ONE (14:00)
[2025-07-28] MEDS: LORazepam Inj 0.5 MG in SYRINGE 0.25 ML IV ONE (14:13)
--- NOTE | 2025-07-28 16:39 | Hospitalist Progress Note ---
Date of Service July 28, 2025 Assessment & Plan (1) Liver masses: (2) Ascites of liver: (3) Electrolyte abnormality: (4) Acute kidney injury: (5) Severe protein-calorie malnutrition: (6) Pruritus due to systemic disorder: (7) Esophagitis determined by endoscopy: (8) Esophageal ulcer with bleeding: (9) Acute on chronic blood loss anemia: (10) Thrombocytopenia: (11) Coagulopathy: Plan Patient with highly suspicious liver masses consistent with hepatocellular carci noma, after discussion with fire technician yesterday recommending MRI with contrast. Extensive conversation with nephrology discussing risks and benefits of contrast for the MRI with his renal dysfunction. Extensive conversation with the patient, nephrology, his on the phone at bedside. Reviewed with the patient and summarized the patient's condition for him and his . Discussed risks and benefits of the MRI. Discussed risks of contrast-induced kidney damage. Also initially brought up possibility of hemodialysis. With informed consent patient chose to move forward with the MRI with contrast Nephrology I communicated with radiology to proceed with MRI with contrast Recheck labs in a.m. Replace potassium Anticipate patient may need another paracentesis Awaiting results of MRI, anticipate potentially coordinating a transfer to [place] pending MRI results and further communication with fire technician. 65 minutes spent on communication with specialist, education and communication with patient and at bedside, reviewing and interpreting data, documentation, orders, coordination of care Admission and Anticipated Discharge Date Admission Date: July 20, 2025 Subjective Patient is feeling a bit more short of breath today, abdomen seems to be a bit jett and more tense. Physical Exam Physical Exam: Constitutional: Alert, cachectic, mild distress HEENT: Mucous membranes moist. Lungs: Decreased breath sounds, dull at bases, tachypnea CV: S1-S2, regular Abdomen: Firm, fluid wave Extremities: Significant ankle and pretibial edema Neuro: No focal deficits Psych: Cooperative, normal mood Results & Data Results & Data Vital Signs (Past 12 Hours) Vital Signs Temp Pulse Resp BP Pulse Ox O2 Del Method 07/28/25 16:00 36.7 C 93 H 17 98/60 L 91 Room Air 07/28/25 08:00 Room Air 07/28/25 07:37 36.5 C 91 H 17 117/64 92 Room Air Diagnostic Findings Reviewed imaging, laboratory and diagnostic studies. Pertinent findings as below. Personally reviewed MRI images, appreciate 2 large masses in the liver, significant ascites in the abdomen, bilateral pleural effusions most likely due to ascites WBCs 5.2 Hemoglobin 7.7, stable Platelets 46 Potassium 2.9 Creatinine 3.60, increasing
--- NOTE | 2025-07-28 19:06 | Magnetic Resonance Report ---
Clinical history: Liver mass Technique: Multiple T1 and T2-weighted magnetic resonance images were obtained of the abdomen before and after the administration of 10 cc of Eovist intravenous contrast Comparison is made to the CT dated 07/20/2025 Findings: Some sequences are limited by motion artifact. There is a large amount of ascites. The liver is shrunken and nodular in contour, consistent with cirrhosis. There is a recanalized umbilical vein and there are abdominal and esophageal varices. The portal and hepatic veins appear patent. There is a 6.9 x 5.5 cm mass of mixed high T2 and low T2 signal intensity in the right hepatic lobe. This is of mixed low T1 and intermediate T1 signal intensity. There is apparent mild heterogeneous enhancement. There is a 4.1 cm mass of predominantly high T1 signal intensity in the left hepatic lobe. There is apparent mild enhancement. There are multiple smaller scattered lesions within the liver of mildly high T1 signal intensity, measuring up to 1 cm. There is apparent rim enhancement. The gallbladder is distended. There is suspected gallbladder sludge. There is wall thickening. No bile duct dilatation is noted. The pancreatic duct is of normal caliber. There is no sign of acute pancreatitis. No definite pancreatic mass lesion is seen The spleen is of normal size. No focal splenic lesion is evident. The adrenal glands appear unremarkable. There is a small 4 mm left renal cyst. No renal mass lesion is seen. There is no hydronephrosis The visualized aorta is of normal caliber. No adenopathy is seen. There are left larger than right pleural effusions. No definite abnormality of the abdominal wall musculature is identified. There is a moderate sized hiatal hernia. There is mild scoliosis Impression: 1. Cirrhosis and portal hypertension 2. Multiple liver masses, concerning for multicentric hepatocellular carcinoma and/or metastatic disease. Tissue diagnosis may be needed 3. Large amount of ascites 4. Bilateral pleural effusions 5. Hiatal hernia 6. Gallbladder sludge with gallbladder distention and gallbladder wall thickening. Correlation with gallbladder sonography may be useful as acute cholecystitis is possible 7. Small left renal cyst ACT 112: Positive. There are findings on this exam that require communication between the performing entity and the patient following Patient Test Result Information Act ([place] ACT 112) guidelines. Electronically signed by Gabriel Vera 07-28-2025 7:06 PM
[2025-07-29 08:21] LABS: Hematocrit (blood only) 19.6 % (42.0-52.0); Hemoglobin 6.9 g/dl (14.0-18.0); Mean Corpuscular Hemoglobin 31.8 pg (25.0-34.0); Mean Corpuscular Volume 90.3 fL (80.0-100.0); Platelet Count 35 K/uL (130-400); RDW Standard Deviation 66.3 fL (36.4-46.3); Red Blood Count 2.17 M/uL (4.70-6.10); White Blood Count 4.00 K/ul (4.8-10.8)
[2025-07-29 08:30] LABS: Alanine Aminotransferase 32.0 U/L (7-52); Albumin Level 3.4 gm/dl (3.4-5.0); Alkaline Phosphatase 97.0 U/L (34-104); Anion Gap 11.0 (3-11); Bilirubin,Total 9.6 mg/dl (0.2-1.0); Blood Urea Nitrogen 41.0 mg/dl (6-23); Calcium 9.2 mg/dl (8.6-10.3); Carbon Dioxide 21.0 mmol/L (21-32); Chloride 103.0 mmol/L (98-107); Creatinine Clr Calc Pharmacy 17.2 ml/min; Glucose 95.0 mg/dl (70-99(Fasting)); Magnesium 1.6 mg/dl (1.7-2.4); Potassium 3.7 mmol/L (3.5-5.1); Sodium 135.0 mmol/L (136-145); Total Protein 5.2 gm/dl (6.0-8.3)
[2025-07-29 08:38] LABS: INR 2.4 (0.9-1.1); Prothrombin Time 24.5 Seconds (9.0-12.0)
[2025-07-29] MEDS ORDERED: SODIUM CHLORIDE 0.9% 100 ML IV PRN (08:48)
--- NOTE | 2025-07-29 08:58 | Gastroenterology Progress Note ---
Date of Service July 29, 2025 Assessment & Plan (1) Acute blood loss anemia: (2) Liver masses: Plan 64yowm with h/o tobacco use, alcohol use (Inconsistent report of when he quit. Initially cited 1 year, but later cited quitting 2 months ago) is seen today on GI rounds for liver mass and hematemesis. (1) UGIB/Hematemesis. - He underwent EGD 07/23/25 revealing LA grade D esophagitis with hematin in mid/distal esophagus which is suspected source of bleeding. No evidence of portal hypertension on imaging or EGD. No varices noted. He remains on Pantoprazole drip. Octreotide stopped. - Repeat EGD with APC treatment 07/26/25 - Hgb dropped again from 7.7g/dl to 6.9g/dl. - Clinically had 1 bowel movement without melena. - Reviewed with attending GI. Recommend ongoing supportive therapy with PPI and transfusion as needed per primary team. No plans for repeat endoscopy at this time. - (2) Cirrhosis/Elevated LFTs/Liver Mass - MRI Liver - 1. Cirrhosis and portal hypertension 2. Multiple liver masses, concerning for multicentric hepatocellular carcinoma and/or metastatic disease. Tissue diagnosis may be needed 3. Large amount of ascites - Initial paracentesis non-diagnostic. Agree with repeat paracentesis as ordered by primary team. - AFP 2757, T-Bili 9.6, AST 47, ALT 32, Alk Phos 97, INR 2.4 (up from 1.9) - Creatinine 3.53 - MELD 37 (up from 33). - Check hepatitis PCR VL confirmed to be positive. - Unfortunately this is all consistent with poor prognosis with limited options. We would not recommend further biopsy at this point based on imaging criteria as this is consistent with multifocal HCC. - Patient is poor candidate for transplant d/t presumed multifocal HCC, multi- organ failure, alcoholism and Hepatitis C. Would be a poor candidate for HCC treatment. At this point would look into palliative options for patient. - Thank you for allowing us to participate in the care of this patient. Please call with any acute changes, questions or concerns. Please see addendum below with additional recommendation from my supervising physician. Admission and Anticipated Discharge Date Admission Date: July 20, 2025 Supervising Physician Co-Signing Physician Notes I personally saw and examined the patient. I have reviewed the chart and agree with the documentation provided by the ASSISTANT FRONT DESK MANAGER including discussion about the assessment, treatment and plan. Briefly, 64yowm with h/o tobacco use, alcohol use (Initially reported he quit 1 year ago, but later reported he stopped 2 months ago) is seen today for liver mass and hematemesis. He appears to have hep C and alcohol induced cirrhosis of the liver, complicated by hepatocellular carcinoma that is multifocal as read by MRI. His alpha- fetoprotein is 2757 and his creatinine is 3.53. He has an elevated bilirubin with normal ducts. His MELD is 37. With multifocal HCC, he is not a candidate for liver transplant. His decline has been triggered by likely ischemic ATN in the setting of upper GI bleeding from severe ulcerative esophagitis. We have done APC on the esophageal ulcer and his melena seems to have dissipated although his hemoglobin vacillates likely from his marrow suppression and chronic renal insufficiency. He is a very poor dialysis candidate from a hepato logy standpoint because of his multifocal HCC. Ideally, he would consider hospice although I am not sure that he feels he is ready for this yet. I told him in his current state immunotherapy with sorafenib or 1 of its cousins is not an option. Certainly he is too sick for HCC treatment via RFA chemoembolization or TACE or surgery. On top of all this, he has not had sobriety for 6 months and has not been to counseling. This is a very difficult situation of a patient with multifocal organ dysfunction complicated by advanced HCC. At this state GI has very few recommendations, we will sign off Subjective 64yowm with h/o tobacco use, alcohol use (Initially reported he quit 1 year ago, but later reported he stopped 2 months ago) is seen today on GI rounds for liver mass and hematemesis. (1) UGIB/Hematemesis. - He underwent EGD 07/23/25 revealing LA grade D esophagitis with hematin in mid/distal esophagus which is suspected source of bleeding. No evidence of portal hypertension on imaging or EGD. No varices noted. He remains on Pantoprazole drip. Octreotide stopped. - Despite this had hematemesis over the weekend. - Repeat EGD oozing at esophagus which was treated with APC 07/26/25. - He reports today that he has no more melena. - Denies abdominal pain, N/V, hematochezia. - Hgb down from 7.7 to 6.9 today. Last given 2U 07/26/25 (2) Elevated LFTs/Liver Mass - T-Bili 6.2, AST 74, ALT 86, Alk Phos 145, Albumin 2.2 - CT Abd/pelvis - Posterior right hepatic lobe lesion measuring 6.7 x 5.4 cm, is internally heterogeneous with scattered low-density areas. - Alpha fetoprotein 2757 - MRI suggests cirrhosis with multi-focal HCC given elevated AFP vs. metastatic unknown primary. Pertinent Diagnostics Hgb 6.0 07/23 => 10.4 07/23 => 9.7 07/24 => 9.0 07/25. => 8.5 07/26/25 => 7.1g/dl BUN 40, Cr 2.75, Na 132, Cl 101, CO2 23, Na 133, K 3.6 T-Bili 7.4 (down from 9.2), AST 47, ALT 39, Alk Phos 106 Abdominal MRI Impression: 1. Cirrhosis and portal hypertension 2. Multiple liver masses, concerning for multicentric hepatocellular carcinoma and/or metastatic disease. Tissue diagnosis may be needed 3. Large amount of ascites 4. Bilateral pleural effusions 5. Hiatal hernia 6. Gallbladder sludge with gallbladder distention and gallbladder wall thickening. Correlation with gallbladder sonography may be useful as acute cholecystitis is possible 7. Small left renal cyst ACT 112: Positive. There are findings on this exam that require communication between the performing entity and the patient following Patient Test Result Information Act ([place] ACT 112) guidelines CT abd/pelvis FINDINGS: Lower chest: No consolidation. No pleural effusion or pneumothorax. Liver: Posterior right hepatic lobe lesion measuring 6.7 x 5.4 cm, is internally heterogeneous with scattered low-density areas. Anterior left hepatic lobe lesion measuring 3.3 x 1.8 cm is hyperattenuating. Gallbladder: No gallstones. No evidence of acute cholecystitis. Spleen: Normal size. Pancreas: No suspicious pancreatic lesions. The pancreatic duct is not dilated. Adrenal glands: No adrenal nodules. Kidneys: No hydronephrosis or obstructing renal stones. Bladder / Pelvic organs: Unremarkable. Bowel: No bowel obstruction. No abnormal bowel wall thickening. The appendix is unremarkable. There is a moderate esophageal hiatal hernia. Sigmoid diverticulosis without diverticulitis. Lymph nodes: No retroperitoneal, mesenteric, or pelvic lymphadenopathy. Peritoneum / Retroperitoneum: There is a large volume of ascites. Vessels: No infrarenal aortic aneurysm. Heavy aortoiliac calcification. Bones and soft tissues: No suspicious lesion in the bones. IMPRESSION: There is a large heterogeneous mass in the posterior right lobe of the liver, which is nonspecific, for benign and malignant etiologies, however the findings are concerning for neoplasm. An abscess is in the differential, however seems less likely. A higher attenuating nodular area in the anterior left lobe, may also represent a mass. Large volume ascites. Electronically signed by Ashwin Vivar 07-20-2025 6:05 PM EGD Impression: - LA Grade D reflux esophagitis with no bleeding. - there was a visible vessel close to GE junction, which could represent the source of recent coffee-ground emesis, this was adequately cauterized with BiCap with complete hemostasis . No active bleeding was seen. - Large, 5 cm hiatal hernia. - Normal second portion of the duodenum. - No portal hypertension gastropathy, esophageal or gastric varices seen - No specimens collected. Recommendation: - Please continue PPI gtt for another 24-20 48 hrs. ok to stop octreotide. ok to resume clear liquids, monitor H/Hand signs of GI bleeding Review of Systems Review of Systems: See HPI Physical Exam Physical Exam: Constitutional: NAD. Alert. Answering questions appropriately. Respiratory: Breathing is even, non-labored. Lungs chaudhary are clear to auscultation anteriorly. Cardiovascular: Regular Rate and Rhythm, no murmurs, rubs or gallops appreciated. Gastrointestinal (Abdomen): Normoactive bowel sounds x4, soft, moderate ascites. Musculoskeletal: Lying in bed comfortably. No peripheral edema. Results & Data Results & Data Vital Signs (Past 12 Hours) Vital Signs Temp Pulse Resp BP Pulse Ox O2 Del Method 07/29/25 07:16 97.3 F L 92 H 18 134/81 92 Room Air 07/28/25 21:40 Room Air PG Care Time/CCT Total # of Minutes Spent Total Time Spent with Patient: Total time spent is greater than 50% in coordination of care (as documented) at patient's floor/unit and/or counseling patient: Coding Level of Care Code 33906 SUB INP/OBS CARE 3/50MIN Diagnoses Acute blood loss anemia D62 Liver masses R16.0
[2025-07-29] MEDS: POTASSIUM CHLORIDE / WTR 10 MEQ/100 ML PLCT IV SCH (09:14)
[2025-07-29] MEDS: MAGNESIUM SULFATE / D5W 1 GM/100 ML BAG IV SCH (09:14)
--- NOTE | 2025-07-29 09:17 | Nephrology Progress Note ---
Date of Service July 29, 2025 Assessment & Plan Admission and Anticipated Discharge Date Admission Date: July 20, 2025 Subjective Assessment & Plan (1) Renal insufficiency: Plan: on presentation his creatinine was 2.0 on July 20 and has gradually climbed to 3.6 today from 3.2 yesterday. This is likely multifactorial: He has had significant fluid shifts with the paracentesis; has also had significant hypotension for prolonged periods of time shortly after admission. No IV contrast for CT scans but MRI w/ group 2 contrast agent ok after extended discussion today (40 min) w/ pt, , Dr Clay of risks/benefits, indications for/ alternatives to IV contrast >> MRI may clinch diagnosis on liver mass and completely change his care plan. Also with severe /life-threatening liver disease. Baseline creatinine unknown; most recent outpatient value in [facility] is from 2012 with a creatinine of 0.9. Likeliest is ischemic ATN--worth noting creat has been rising even before lasix. Unknown baseline creatinine with progressive renal dysfunction since arrival over the past 5 days. Marked volume overload and electrolyte abnormalities Rec: 1 We need to have definitive plan for this hepatic Cancer, portal HTN with Cirrhosis. His situation is pretty much terminal in practical sense. I dont see how we can mange this here at [facility] Would recommend transfer to liver Center or palliative medicine/Hospice care 2 No plan to start Dialysis without more definitive plan. 3 Getting Transferred to [facility] [place] as per Dr Clay. Case discussed in detail. getting Abd paracentesis and PRBC today (2) Disorder of fluid or electrolyte: Plan: has had significant electrolyte issues >> hyponatremia, hypomagnesemia, hypokalemia. continue to check these daily and replete magnesium and potassium as needed K and na better (3) Liver masses: Plan: malignant HCC . w/ elevated AFP, mass > 6 cm (4) Acute blood loss anemia: Plan: hgb 6.9 today. per primary service and GI; serial hemoglobin; continue Protonix; has had 2 units pRBC so far on 07/23 getting PRBC today Subjective NO Change in status. MRI done and shows HCC and Cirrhosis Review of Systems Review of Systems: All systems reviewed & are unremarkable except as noted in Subjective Physical Exam Constitutional: well developed (more winded, more restless today), + cachectic and cooperative; no acute distress Eyes: EOM intact bilaterally; sclerae not anicteric ENMT: Mouth: + dry oral mucous membranes Respiratory: + labored breathing (slight), + cough (p roductive green phlegm), able to speak in complete sentences and + abnormal respiratory pattern Auscultation: + diminished lung sounds Cardiovascular: Rate/Rhythm: regular rhythm and + tachycardic Extremities: + edema (2+ BLE) Gastrointestinal (Abdomen): Inspection/Auscultation: + abdomen distended (? more today) and normal bowel sounds Percussion/Palpation: abdomen soft and + ascites; abdomen nontender Musculoskeletal: Extremities: strength 5/5 throughout Skin: no rashes, warm and dry Psychiatric: Orientation: alert and oriented x 3 Results & Data Vital Signs (Past 12 Hours) Vital Signs Temp Pulse Resp BP Pulse Ox O2 Del Method 07/29/25 07:16 36.3 C L 92 H 18 134/81 92 Room Air 07/28/25 21:40 Room Air
--- NOTE | 2025-07-29 13:20 | Ultrasound Report ---
ULTRASOUND-GUIDED PARACENTESIS CLINICAL HISTORY: Ascites PROCEDURE: Procedure and risks were explained. Informed consent was obtained. A final timeout was com pleted. A pocket of ascites was identified in the left lower quadrant. The left lower quadrant was pr epped and draped in sterile fashion. 1% lidocaine was utilized for skin anesthesia. Utilizing ultrasound guidance, a 5 [place] safety centesis catheter was advanced into the pocket of as cites. Ultrasound image was obtained. A total of 3.2 L of yellow ascites fluid was removed. The bebo ter was removed and Band-Aid applied. The patient tolerated the procedure well. Vital signs will be m onitored postprocedure. IMPRESSION: Ultrasound-guided paracentesis as above. Performed, dictated, and signed by Rizwan Arreguin PA-C; to be co-signed by Dr. Enzo Rene. Electronically signed by: Enzo Rene M.D. 07/29/2025 1:30 PM
[2025-07-29 14:56] VITALS: O2SAT 96
[2025-07-29] MEDS ORDERED: MoRPHine SULFATE 10 MG/0.5 ML UDP PO PRN (15:15)
[2025-07-29] MEDS ORDERED: LORazepam 0.5 MG TAB PO PRN (15:15)
[2025-07-29] MEDS ORDERED: ONDANSETRON INJ 2 MG/ML 2 ML VIAL IV PRN (15:15)
--- NOTE | 2025-07-29 15:29 | Hospitalist Progress Note ---
Date of Service July 29, 2025 Assessment & Plan (1) Hepatocellular carcinoma: (2) Cirrhosis of liver: (3) Hepatitis C: (4) Ascites of liver: (5) Acute on chronic blood loss anemia: (6) Esophageal ulcer with bleeding: (7) Esophagitis determined by endoscopy: (8) Pruritus due to systemic disorder: (9) Severe protein-calorie malnutrition: (10) Acute kidney injury: (11) Thrombocytopenia: (12) Coagulopathy: (13) Electrolyte abnormality: Plan Patient with diagnostic criteria for hepatocellular carcinoma. Transfuse 1 unit PRBCs this morning after conversation with the patient. Made him aware of requesting possible transfer to [facility]. Paracentesis today for symptomatic ascites Reviewed MRI results with the patient. Communication with branch library clerk at [facility], to discuss possible transfer. He was able to review the MRI images. I also reviewed with him today's laboratory studies. Patient's MELD score is 37. His ECOG score is 2. This MELD score translates to a 3-month mortality of greater than 50%. With the severity of the patient's MELD score, his severe malnutrition, poor functional capacity, it was determined that he would not be a candidate for any type of interventional treatment for the presumed hepatocellular carcinoma. Would not be a candidate for transfer urgently to [facility] for any type of interventions. He suggested possible oncology consultation, however, was quite certain that patient would not be able to tolerate any type of chemotherapy treatments. If patient would want to pursue outpatient appointment with hepatology that could be considered. Goals of care/palliative care discussion with patient and at bedside this afternoon 35 minutes: Sat at the bedside with the patient and his . I reviewed his MELD score. I reviewed his ECOG score. I reviewed the conversation I had with Dr. Malik. I explained to them that due to his overall condition that he is really not a candidate for any type of interventions on his liver cancer. I also discussed with them that as I got to know him over the past few days he seems like he would want to be at home and be available to his family. They agreed with this and therefore we have started to discuss hospice care. Explained to him that they would be able to get him all the care equipment that he would need for his home. And that they would focus on keeping him comfortable. With this type of care he would not have to run back and forth to the hospital, laboratory, clinics, etc. explained to them that this type of care his time would be limited, however, his time would be at home with his family. After considering all this information and options, patient and decided move forward with comfort measures and home hospice. Communication with case management, made aware of desire for patient to return home with hospice. I anticipate he will need another paracentesis. Hopefully this will be allowable for comfort. Would recommend the next time he needs paracentesis a PleurX catheter be placed so that they can relieve his discomfort from his ascites at home. Admission and Anticipated Discharge Date Admission Date: July 20, 2025 Subjective Patient seen this morning noticed increasing shortness of breath and increasing tension in his abdomen. Physical Exam Physical Exam: Constitutional: Alert, cachectic, chronically ill in appearance HEENT: Mucous membranes moist. Lungs: Decreased breath sounds, dull at bases CV: S1-S2, regular Abdomen: Firm, fluid wave, generalized tenderness, no guarding or rigidity Extremities: Decreased ankle edema Neuro: No focal deficits, generally weak Psych: Cooperative, depressed mood Results & Data Results & Data Vital Signs (Past 12 Hours) Vital Signs Temp Pulse Pulse Resp BP BP Pulse Ox 07/29/25 14:56 36.3 C L 79 18 107/65 96 07/29/25 14:27 36.3 C L 89 12 106/69 97 07/29/25 13:41 36.3 C L 85 16 106/70 95 07/29/25 12:41 36.3 C L 89 14 109/70 96 07/29/25 12:11 36.3 C L 94 H 16 104/69 94 07/29/25 11:56 36.3 C L 92 H 14 105/70 100 07/29/25 11:44 36.3 C L 91 H 12 102/63 96 07/29/25 11:37 36.3 C L 89 12 110/71 94 07/29/25 08:00 07/29/25 07:16 36.3 C L 92 H 18 134/81 92 O2 Del Method 07/29/25 14:56 Room Air 07/29/25 14:27 07/29/25 13:41 07/29/25 12:41 07/29/25 12:11 07/29/25 11:56 07/29/25 11:44 07/29/25 11:37 07/29/25 08:00 Room Air 07/29/25 07:16 Room Air Diagnostic Findings Reviewed imaging, laboratory and diagnostic studies. Pertinent findings as below. WBCs 4.0 Hemoglobin 6.9 Platelets of 35 INR 2.4 Creatinine 3.5 Magnesium 1.6 Total bilirubin 9.6 AST 47 ALT 32 Alk phos 97 Abdominal MRI shows cirrhosis and portal hypertension, multiple liver masses, largest mass measuring 6.9 x 5.5 cm. Other large masses 4.1 cm Large amount of ascites, bilateral pleural effusions, gallbladder sludge Paracentesis today 3.2 L of ascites
[2025-07-29 20:24] VITALS: PULSE 89; RESP 16; TEMP 97.7
[2025-07-30] MEDS: FUROSEMIDE 40 MG TAB PO SCH (08:23)
[2025-07-30] MEDS: SPIRONOLACTONE 100 MG TAB PO SCH (08:27)
[2025-07-30] MEDS ORDERED: FUROSEMIDE 20 MG TAB PO SCH (09:00)
--- NOTE | 2025-07-30 10:50 | Discharge Summary ---
Discharge Summary Date of Service July 30, 2025 Principal Dx & Hospital Course #1 = Principal Diagnosis (1) Hepatocellular carcinoma: (2) Cirrhosis of liver: (3) Hepatitis C: (4) Ascites of liver: (5) Acute on chronic blood loss anemia: (6) Esophageal ulcer with bleeding: (7) Esophagitis determined by endoscopy: (8) Pruritus due to systemic disorder: (9) Severe protein-calorie malnutrition: (10) Acute kidney injury: (11) Thrombocytopenia: (12) Coagulopathy: (13) Electrolyte abnormality: Plan Patient 64-year-old gentleman who historically has not followed with a physician regularly was having some pruritus and weight loss over the last several weeks. Patient went to see an outpatient provider who did some laboratory studies. These were significantly abnormal and he was told to go to the emergency room for evaluation. In the emergency room initial imaging showed 2 large masses in the liver. He had multiple laboratory abnormalities including anemia and abnormal LFTs and electrolytes. Also had some significant kidney dysfunction. Patient was admitted to the hospital. Interventional radiology consultation was obtained for liver biopsy and paracentesis. Patient was taken for paracentesis initially. This resolved his significant abdominal discomfort. Testing on the ascitic fluid was unrevealing for any type of acute infection or noted malignancy. Subsequently patient's hospitalization was complicated by some hematemesis. GI consultation was obtained. Patient required transfusion of PRBCs. Patient underwent EGD. Showed some esophagitis and esophageal ulcerations but no active bleeding. Patient was kept on IV PPI. However he had recurrent bleeding and hematemesis. Patient return for second EGD. This time underwent laser argon treatment for bleeding esophageal ulcer. After this treatment hemoglobin overall stabilized. He was transition to oral PPI and his diet was advanced. Unfortunately patient continued to have significantly abnormal INR. He also had significant thrombocytopenia. This delayed moving forward with any biopsy of the liver mass. During this time, patient alpha- fetoprotein also resulted. It was extremely elevated raising concern for hepatocellular carcinoma. Patient also had his hepatitis C RNA resulted which is consistent with a hepatitis C infection. [facility] was contacted for possible transfer for liver biopsy. Able to communicate with Dr. Malik, hepatology. He recommended MRI with contrast for better sizing of these masses and with MRI, alpha-fetoprotein and size of the masses did not need a tissue biopsy to diagnose hepatocellular carcinoma. Patient also was having significantly worsening acute kidney injury. Nephrology consultation was obtained. They were monitoring him on a daily basis. They were attempting to d iuresis with Lasix and replacing electrolytes as needed. MRI of the abdomen confirmed 2 large masses and many smaller masses within the liver. Results again were discussed with hepatology. With the findings of the liver, his extremely elevated alpha-fetoprotein, a MELD score of 37, ECOG score of at least 2 he was not a candidate for any type of intervention or even chemotherapy or radiation. It was recommended that discussions ensued with the patient about goals of care. Had an extensive conversation with the patient and his at bedside reviewing all his results over the past week and his grave condition with hepatocellular carcinoma. Ultimately this discussion led them to to choose for home hospice. He was transition to comfort care. Case management was involved and has coordinated hospice 365. He will be discharged home to continue hospice care at home. On the day prior to discharge patient did undergo a second paracentesis, 3 L removed. We will coordinate outpatient IR for paracentesis and PleurX catheter placement. Anticipate he will need another paracentesis within the next 7 to 10 days. Notes For Next Care Provider Call hospice first with any questions or concerns Will need outpatient paracentesis and PleurX catheter placed for paracentesis for comfort Medication Changes From Visit Roxanol for comfort Ativan for comfort Bowel regimen Atarax for pruritus Admission HPI Per Admitting Provider Patient is a 64-year-old gentleman presents to the emergency room with above complaints. He was sent in by primary care provider due to abnormal labs. The patient has not seen a physician for at least 10 years. Went to see primary care provider a few days ago with complaints of weight loss and pruritus. Outpatient laboratory studies showed significant laboratory abnormalities incl uding abnormal LFTs and anemia. Sent to the emergency room for further evaluation. In the emergency room laboratory studies confirm some anemia. Multiple electrolyte abnormalities, kidney dysfunction and abnormal LFTs. Imaging in the ED also was significant for a fairly large liver mass. Patient was referred to our service for further evaluation. Time my evaluation patient states he is comfortable but has this incessant pruritus. Pruritus has been ongoing for months. The patient did have teeth extraction a few weeks ago. He was on antibiotics for that. He did have some bleeding gums associated with the teeth extraction and may explain some of his anemia. He states that his gums are healed up no no significant pain at this time. He admits to some shortness of breath with exertion but no chest pain. His appetite has been poor for quite some time and now with his teeth extracted his oral intake has been significantly reduced. He does admit noticing weight loss even before he had his teeth extracted but since the teeth extraction has lost weight even more rapidly. He did mid to a history of heavy alcohol use in the past. Over the past year has cut that back significantly and has not had an alcoholic beverage drink for at least 1 month. He also smoked heavily in the past greater than a pack a day and recently over the past month has been only smoking a few cigarettes per day. He has noticed some constipation with his decreased appetite. He states he did have some black stools shortly after his tooth extraction. This would makes perfect sense since he was having significant bleeding gums and was swallowing blood from the bleeding gums. He had denies any problems passing his urine. No swollen or tender joints. No swelling in his hands legs arms or feet. Patient denies any known medical problems, takes no prescription medications Family history significant for father with coronary disease, mother of old age. There is no cancer that he is aware of in the family. Admission Exam Per Admitting Provider See H&P Discharge Exam Constitutional: Alert, cachectic, frail HEENT: Mucous membranes moist., Scleral icterus Lungs: Decreased breath sounds at bases, dull CV: S1-S2, regular Abdomen: Firm, less distended, decreased fluid wave Extremities: Ankle edema Neuro: No focal deficits, generally weak Psych: Cooperative, depressed mood Updated Medication List Medication Instructions Recorded Confirmed Type furosemide 40 mg tablet 40 mg PO QAM #30 tabs 07/30/25 Rx hydroxyzine HCl 25 mg tablet 25 mg PO BID #60 tabs 07/30/25 Rx lorazepam 0.5 mg tablet 0.5 mg PO Q4H PRN anxiety #15 tabs 07/30/25 Rx morphine concentrate 100 mg/5 mL 5 mg (0.25 mL) PO Q3H PRN 07/30/25 Rx (20 mg/mL) oral solution pain/sob/discomfort #30 mL ondansetron HCl 4 mg tablet 4 mg PO Q6H PRN nausea and 07/30/25 Rx vomiting #30 tabs pantoprazole 40 mg tablet,delayed 40 mg PO BID #60 tabs 07/30/25 Rx release polyethylene glycol 3350 17 gram 17 g PO DAILY #30 ea 07/30/25 Rx oral powder packet (Miralax) spironolactone 100 mg tablet 100 mg PO QAM #30 tabs 07/30/25 Rx Hospital Stay Data Consultations 07/20/25 18:52 ED Decision to Admit Stat 07/23/25 05:58 Consult Gastroenterology Routine 07/25/25 07:37 Consult Nephrology Routine Procedures Performed Operation Date: 07/26/25 17:10 Actual Procedures p EGD Hemostasis - Sebastián Fontenot MD Diagnostic Imagining Performed 07/20/25 17:08 CT abd pelvis wo con Stat 07/20/25 19:15 CT chest diagnostic wo con Routine 07/21/25 00:00 IR paracentesis abd w/img US Routine 07/28/25 09:49 MRI Abdomen [MR abdomen wo/w con] Urgent 07/29/25 08:02 IR paracentesis abd w/img US Routine Reviewed imaging, laboratory and diagnostic studies. Pertinent findings as below. WBCs 4.0 Hemoglobin 6.9, notes patient was given 1 unit of packed red blood cells with this result. Then transition to comfort care Platelets 35 INR 2.4 Sodium 135 Potassium 2.7 Chloride 103 BUN 41 Creatinine 3.5 Total bilirubin 9.6 Direct bilirubin 6.6 AST 47 ALT 32 Alk phos 97 Alpha-fetoprotein 2757 Hepatitis C antibody positive HCVRNA 5,690,000, elevated HCV RNA PCR log 6.76, elevated Peritoneal fluid culture no growth Blood cultures no growth Echocardiogram shows ejection fraction 65 to 70% with normal wall motion MRI of the abdomen: Cirrhosis and portal hypertension, multiple liver masses 2 largest measuring 6.9 x 5.5 cm and 4.1 cm in diameter, extensive ascites, bilateral pleural effusions, hiatal hernia, gallbladder sludge with some mild gallbladder distention Pending Results Patient Have Any Pending Studies at Discharge: No Discharge Instructions Given to Patient (Per Discharging Provider) Call hospice first with any questions or concerns Home Health Attestation I certify that this patient is under my care and that I, or a physicians carpenter assistant installer working with me, had a face to-face encounter that meets the home health [id number] encounter requirements with this patient. The encounter with the patient was in whole, or in part, for the following medical condition, which is the primary reason for home health care (list medical condition): I certify that, based on my findings, the following services are medically necessary home health services: My clinical findings support the need for the above services because: Further, I certify that my clinical findings support that this patient is homebound (i.e. absences from home require considerable and taxing effort and are for medical reasons or mosque services or infrequently or of short duration when for other reasons) because: Certification for Home Health Services: Based on the above findings, I certify that this patient is confined to the home and needs intermittent jail care, physical therapy and/or speech therapy or continues to need occupational therapy. The patient is under my care, and I have initiated the establishment of the plan of care. This patient will be followed by a physician who will periodically review the plan of care. Total Time Total Time Spent Total Time Spent (In Minutes): 50
[2025-07-30 11:11] VITALS: BP 118/66
== END 2025-07-30 11:59 | disposition hospice, home (50) | DRG 435 ==
LOC: ED 16:04 → SUATTDRO 19:15 → 3W 19:15 → 2S 07-23 06:48 → 3E 07-29 23:35